=== PATIENT | male | born 1945 | race Caucasian/White ===

== ENCOUNTER 2020-09-27 10:37 | Outpatient (CLI) | payer MEDICARE, OTHER, SELFPAY ==
--- NOTE | ~2020-09-27 | XR_ITS ---
XR chest 2V DATE: 09/27/2020 11:00 INDICATION: Shortness of breath TECHNIQUE: PA and lateral views COMPARISON: 01/02/2016 AP and lateral views FINDINGS: There are bilateral lower lung infiltrates and/atelectasis involving primarily the lower lo bes. There are small bilateral pleural effusions. There is mild prominence of the fissures suggesting subpleural edema. There is mild pulmonary vascular congestion and redistribution. Heart size appears within normal limits. Diffuse osteopenia. Diffuse idiopathic skeletal hyperostosis of the thoracic spine. IMPRESSION: Congestive changes, small bilateral pleural effusions Bilateral lower lung infiltrates and/atelectasis, primarily involving the lower lobes Reviewed, dictated and finalized at location B. ANICAL MAINTENANCE
== END 2020-09-27 10:38 | disposition home or self-care (01) ==
PROVIDERS: PCP Internal Medicine; Visit Provider Internal Medicine
DX: R06.02 Shortness of breath (principal); J90 Pleural effusion, not elsewhere classified
CPT/HCPCS: 71046

== ENCOUNTER 2020-09-29 15:59 | Emergency (ER) | payer MEDICARE, OTHER, SELFPAY ==
[2020-09-29] VITALS (7 sets, daily range): BP systolic 123–154; BP diastolic 72–94; PULSE 72–105; RESP 16–21; TEMP 36.4; O2SAT 96–99
--- NOTE | ~2020-09-29 | CT_ITS ---
EXAMINATION: CTA chest PE protocol EXAM DATE: 09/29/2020 18:13 INDICATION: Shortness of breath and elevated d-dimer. TECHNIQUE: Spiral CTA of the chest (pulmonary arteries) was performed with 100 cc Omnipaque 350 intr avenous contrast injection. Images were acquired during the pulmonary arterial phase. Coronal maxi mum intensity projection 3D-reconstructions were created by the technologist on dedicated workstation . Axial, coronal and sagittal reformatted images were reviewed. The dose-length product (DLP) for t his examination was 1090.80 mGy-cm. The exposure was tailored according to patient size (auto mA ex posure control), and iterative reconstruction (ASIR) was used as additional dose reduction technique. Correlation is made to chest x-ray earlier same date. FINDINGS: Pulmonary arteries are well opacified and without intraluminal filling defects. No thora cic aortic dissection. Bibasilar subsegmental atelectasis. There is small to moderate right, and a small left pleural effusion. Tracheobronchial tree is patent. There is no mediastinal, hilar or ax illary lymphadenopathy. There is no pneumothorax. There is cardiomegaly. There is moderate coron latricia arterial calcification, arterial sclerosis. Upper abdomen is unremarkable. There is thoracic s pondylosis without osteoblastic or osteolytic lesions identified. IMPRESSION: 1. Small to moderate right, small left pleural effusions, adjacent atelectasis. 2. Cardiomegaly. 3. No pulmonary emboli. Reviewed, dictated and finalized at location A. SLAND CONSERVATIONIST IMPRESSION: 1. Small to moderate right, small left pleural effusions, adjacent atelectasis . 2. Cardiomegaly. 3. No pulmonary emboli.
--- NOTE | ~2020-09-29 | XR_ITS ---
EXAMINATION: XR chest 2V EXAM DATE: 09/29/2020 16:46 INDICATION: Shortness of breath at rest, progressing. TECHNIQUE: Frontal and lateral projections of the chest obtained and reviewed. Comparison is made to prior examination from 09/27/2020. FINDINGS: Small left pleural effusion and small amount of left basilar atelectasis or pneumonia, sim ilar appearance to prior examination. Previously seen small amount of right basilar airspace disease and small right effusion have improved or resolved. The lungs are otherwise clear. There are no pleural effusions. The cardiomediastinal silhouette is p rominent but magnified on this AP technique. There is no pneumothorax suspected. Mild thoracic sp ondylosis. IMPRESSION: Persistent left basilar small opacities and small left pleural effusion. Reviewed, dictated and finalized at location A. TAL MARKETING MANAGER IMPRESSION: Persistent left basilar small opacities and small left pleural effu torsten.
--- NOTE | 2020-09-29 16:16 | ECG_ITS ---
Measurements Intervals [place] Rate: 102 P: 54 [place]: 185 QRS: 105 QRSD: 130 T: 53 QT: 368 QTc: 481 Interpretive Statements SINUS TACHYCARDIA LEFT ATRIAL ENLARGEMENT INCOMPLETE LEFT BUNDLE BRANCH BLOCK LOW VOLTAGE- LIMB LEADS POOR R WAVE PROGRESSION, ANTERIOR LEADS BORDERLINE ST-T WAVE ABNORMALITY- INFERIOR LEADS BASELINE WANDER- I, II, V2 ABNORMAL ECG Electronically Signed On 09-29-2020 21:24:04 SOCIAL WORK CASE MANAGER by Jc Esteban D.O.
[2020-09-29 16:29] LABS: Basophils Absolute Auto 0.1 K/mm3 (0.0-0.1); Basophils Percent Auto 0.8 % (0.2-1.2); Eosinophils Absolute Auto 0.3 K/mm3 (0-0.3); Eosinophils Percent Auto 3.3 % (0-4.4); Hematocrit 45.9 % (42.0-52.0); Hemoglobin 14.9 g/dL (14.0-18.0); Immature Granulocyte Absolute 0.03 K/mm3 (0.00-0.031); Immature Granulocyte Percent A 0.3 % (0-0.5); Lymphocytes Absolute Auto 2.85 K/mm3 (0.9-3.2); Lymphocytes Percent Auto 31.6 % (18.3-44.2); Mean Corpuscular HGB Conc 32.5 g/dl (32-36); Mean Corpuscular Hemoglobin 29.3 pg (26-34); Mean Corpuscular Volume 90.2 fl (80-100); Mean Platelet Volume 10.9 fl (7.4-10.4); Monocytes Absolute Auto 0.6 K/mm3 (0.1-0.6); Monocytes Percent Auto 6.9 % (2.6-8.5); Neutrophils Absolute Auto 5.2 K/mm3 (1.3-6.7); Neutrophils Percent Auto 57.1 % (45.5-73.1); Platelet Count Result 190 k/mm3 (150-375); Red Blood Count 5.09 M/mm3 (4.6-6.20); Red Cell Distribution Width 14.4 % (11.5-14.5)
[2020-09-29 16:41] LABS: Anion Gap 11 mmol/L (8-16); Blood Urea Nitrogen 20 mg/dL (9-20); Calcium 9.9 mg/dL (8.4-10.2); Carbon Dioxide 25 mmol/L (22-30); Chloride 106 mmol/L (98-107); Estimated CRCL calculation 46 ml/min; Estimated Glomerular Filt Rate 59; Glucose 143 mg/dL (75-110); Potassium 4.4 mmol/L (3.4-5.0); Sodium 142 mmol/L (137-145)
--- NOTE | 2020-09-29 17:16 | ED.SOB ---
HPI - SOB/Dyspnea General Chief Complaint: Shortness of Breath/Dyspnea Stated Complaint: Short of breath Time Seen by Provider: 09/29/20 16:57 Source: patient Mode of arrival: ambulatory Limitations: no limitations History of Present Illness HPI Narrative: This is a 75 year old male that presents to the ER for shortness of breath x 1 week. Worse with lying flat and exertion. Denies fever, cough, chest pain or lower extremity edema. Related Data Home Medications Medication Instructions Recorded Confirmed aspirin 81 mg tablet,delayed 81 mg PO DAILY 09/27/20 09/27/20 release Allergies Allergy/AdvReac Type Severity Reaction Status Date / Time No Known Allergies Allergy Unknown Verified 09/29/20 16:25 Review of Systems Review of Systems: Narrative: CONSTITUTIONAL: Denies fever CARDIOVASCULAR: Denies chest pain, or edema. RESPIRATORY: Reports dyspnea. Denies cough All systems reviewed & are unremarkable except as noted in HPI and below PMFSH Past Medical History Medical History (Updated 09/29/20 @ 20:07 by Susie Akhtar PA-C) Benign essential hypertension Cardiomyopathy Type 2 diabetes mellitus without complication, without long-term current use of insulin Family History Family History (Updated 07/15/18 @ 00:00 by CONVUSER Mynor) Mother Family history of type 2 diabetes mellitus Social History Social History Smoking status: Never smoker Exam Narrative: Exam Narrative: GENERAL: Well-appearing, well-nourished, and in no acute distress. HEAD: Normocephalic, atraumatic. EYES: EOMI. ENT: Nares clear, no rhinorrhea or epistaxis. Mucous membranes moist. Oropharynx without tonsillar hypertrophy exudate or other lesions. Bilateral TMs pearly beverly non-bulging NECK: Supple. No adenopathy or masses. CHEST: Clear to auscultation. No respiratory distress. No wheezes rales or rhonchi HEART: Regular rate and rhythm. No murmur heard. Normal peripheral pulses. EXTREMITIES: Normal range of motion. No edema. SKIN: Warm, dry, no rash. NEURO: No focal deficits. Alert and oriented x3. PSYCH: Normal mood and affect Course Vital Signs Vital signs: Vital Signs Temperature 97.5 F L 09/29/20 16:07 Pulse Rate 91 09/29/20 16:07 Respiratory Rate 20 09/29/20 16:07 Blood Pressure 154/84 H 09/29/20 16:07 Pulse Oximetry 99 09/29/20 16:07 Temperature 97.5 F L 09/29/20 16:07 Pulse Rate 105 H 09/29/20 19:25 Respiratory Rate 16 09/29/20 19:25 Blood Pressure 142/94 H 09/29/20 19:25 Pulse Oximetry 97 09/29/20 19:25 MDM - SOB/Dyspnea Lab Data Attestation: I reviewed the patient's lab results. Result diagrams: 09/29/20 16:22 09/29/20 16:22 Labs: Lab Results 09/29/20 09/29/20 09/29/20 Range/Units 16:22 16: 16:22 WBC 9.0 (4.5-10.0) K/mm3 RBC 5.09 (4.6-6.20) M/mm3 Hgb 14.9 (14.0-18.0) g/dL Hct 45.9 (42.0-52.0) % MCV 90.2 (80-100) fl MCH 29.3 (26-34) pg MCHC 32.5 (32-36) g/dl RDW 14.4 (11.5-14.5) % Plt Count 190 (150-375) k/mm3 MPV 10.9 H (7.4-10.4) fl Immature Gran % (Auto) 0.3 (0-0.5) % Neut % (Auto) 57.1 (45.5-73.1) % Lymph % (Auto) 31.6 (18.3-44.2) % [place] % (Auto) 6.9 (2.6-8.5) % Eos % (Auto) 3.3 (0-4.4) % Baso % (Auto) 0.8 (0.2-1.2) % Lymph # (Auto) 2.85 (0.9-3.2) K/mm3 [place] # (Auto) 0.6 (0.1-0.6) K/mm3 Eos # (Auto) 0.3 (0-0.3) K/mm3 Baso # (Auto) 0.1 (0.0-0.1) K/mm3 Abs Immat Gran (auto) 0.03 (0.00-0.031) K/mm3 Absolute Neuts (auto) 5.2 (1.3-6.7) K/mm3 Absolute Nucleated RBC 0.0 (0.0-0.012) K/mm3 Nucleated RBC % 0.0 (0.0-0.2) % PT (11.1-14.7) Seconds INR APTT (22.3-36.8) SECONDS D-Dimer (<0.48) ug/mL Sodium 142 (137-145) mmol/L Potassium 4.4 (3.4-5.0) mmol/L Chloride 106 (98-107) mmol/L Carbon Dioxide 25 (22-30) mmol/L Anion Gap 11 (8-16) mmol/L BUN 20 (9-20) mg/dL Creatinin
[2020-09-29 17:22] LABS: NT Pro B Type Natriuretic Pept 1940 PG/ML (5-100)
[2020-09-29 17:27] LABS: Prothrombin Time 13.8 Seconds (11.1-14.7)
[2020-09-29 17:28] LABS: Partial Thromboplastin Time 27.7 SECONDS (22.3-36.8)
[2020-09-29 17:30] LABS: D Dimer 1.12 ug/mL (<0.48)
[2020-09-29 17:57] LABS: Troponin I 0.022 ng/mL (0.000-0.034)
[2020-09-29] MEDS: FUROSEMIDE INJ 40 MG/4 ML VIAL IV PUSH (19:18)
== END 2020-09-29 20:35 | disposition home or self-care (01) ==
PROVIDERS: Physician Assistant; Emergency Provider Emergency Medicine; PCP Internal Medicine
DX: J90 Pleural effusion, not elsewhere classified (principal); I10 Essential (primary) hypertension; E11.9 Type 2 diabetes mellitus without complications; I51.7 Cardiomegaly; Z79.82 Long term (current) use of aspirin
CPT/HCPCS: 36415; 71046; 71275; 80048; 83036; 83880; 84484; 85025; 85380; 85610; 85730; 93005; 96374; 99284; J1940; Q9967

== ENCOUNTER 2020-10-08 10:55 | Outpatient (CLI) | payer MEDICARE, OTHER, SELFPAY ==
--- NOTE | ~2020-10-08 | CT_ITS ---
EXAMINATION: CT brain wo con EXAM DATE: 10/08/2020 11:31 INDICATION: Visual problem, headache. Intracranial arterial sclerosis. TECHNIQUE: Spiral CT of the head was performed without contrast. Axial, coronal and sagittal images were reviewed. The dose-length product (DLP) for this examination was 681.00 mGy-cm. The exposure w as tailored according to patient size, and iterative reconstruction (ASIR) was used as additional dos e reduction technique. There is no prior study for comparison. FINDINGS: There is moderate-sized hypodensity within the left occipital lobe beverly and white matter co nsistent with developing infarction. There is no acute intraparenchymal hemorrhage. No evidence of i ntraparenchymal brain mass lesion. There is mild periventricular and subcortical hypodensity, nonspe cific but probably related to small vessel ischemic disease. There is mild prominence of the sulci and ventricles related to cerebral atrophy. There is intracranial carotid arteriosclerosis. There are no extra-axial collections. There is no mass effect or midline shift. The orbits are unremarkab le. Soft tissue is unremarkable. The visualized sinuses and mastoid air cells are well aerated. IMPRESSION: 1. Moderate-sized acute left occipital lobe infarction. 2. Chronic age related findings. Reviewed, dictated and finalized at location A. GER HELPDESK
--- NOTE | ~2020-10-08 | US_ITS ---
EXAMINATION: US carotid duplex BI DATE: 10/08/2020 11:29 INDICATION: Transient ischemic episode with subjective visual disturbance and headache TECHNIQUE: Grayscale, color Doppler, and pulsed Doppler images of the cervical carotid arteries were obtained. The degree of vessel stenosis is placed in one of the following categories: normal, <50%, 5 0-69%, >=70% but less than near-occlusion, near-occlusion, or total occlusion. Note that percent sten osis relative to normal distal artery lumen diameter is indirectly measured from velocity measurement s as described by Pablo, et al. Radiology 2003; 229:340-346. COMPARISON: None. FINDINGS: RIGHT: The right common carotid artery (CCA) peak systolic velocity (PSV) is 92 cm/s. The right internal car otid artery (ICA) PSV is 125 cm/s. The right ICA end-diastolic velocity (EDV) is 17 cm/s. The right I CA/CCA PSV ratio is 1.4. Grayscale and color Doppler images including secondary Doppler criteria yiel d an estimate of <50% diameter reduction from plaque in the ICA. The external carotid artery (ECA) PS V is 130 cm/s. There is antegrade flow in the right vertebral artery. LEFT: The left CCA PSV is 112 cm/s. The left ICA PSV is 126 cm/s. The left ICA EDV is 22 cm/s. The left ICA /CCA PSV ratio is 1.1. Grayscale and color Doppler images using secondary Doppler criteria yield an e stimate of <50% diameter reduction from plaque in the ICA. The ECA PSV is 113 cm/s. There is antegrad e flow in the left vertebral artery. IMPRESSION: 1. <50% stenosis in the right internal carotid artery. 2. <50% stenosis in the left internal carotid artery. 3. Tachycardia. Reviewed, dictated and finalized at location B. ION PHOTOGRAPHER
== END 2020-10-08 10:56 | disposition home or self-care (01) ==
PROVIDERS: PCP Internal Medicine; Visit Provider Internal Medicine
DX: I65.23 Occlusion and stenosis of bilateral carotid arteries (principal); R00.0 Tachycardia, unspecified
CPT/HCPCS: 70450; 93880

== ENCOUNTER 2020-10-23 10:49 | Outpatient (CLI) | payer MEDICARE, OTHER, SELFPAY ==
--- NOTE | ~2020-10-23 | XR_ITS ---
EXAMINATION: XR chest 2V DATE: 10/23/2020 11:08 INDICATION: Cardiomyopathy. TECHNIQUE: Frontal and lateral views of the chest were obtained. COMPARISON: Chest 2 views 09/29/2020, chest CT 09/29/2020 FINDINGS: There is no pneumonia, pleural effusion, or pneumothorax. The heart size is normal. Calcifi ed mediastinal and left hilar lymph nodes are consistent with old granulomatous disease. IMPRESSION: 1. No acute cardiopulmonary disease. Reviewed, dictated and finalized at location A.
== END 2020-10-23 10:50 | disposition home or self-care (01) ==
PROVIDERS: PCP Internal Medicine; Visit Provider Internal Medicine
DX: I42.9 Cardiomyopathy, unspecified (principal)
CPT/HCPCS: 71046

== ENCOUNTER 2020-12-10 09:59 | Emergency (ER) | payer MEDICARE, OTHER, SELFPAY ==
--- NOTE | ~2020-12-10 | XR_ITS ---
EXAMINATION: XR chest 2V EXAM DATE: 12/10/2020 10:51 INDICATION: Shortness of air, cough. TECHNIQUE: Frontal and lateral projections of the chest obtained and reviewed. Comparison is made to prior examination from 10/23/2020. FINDINGS: Small amount of nonspecific right lower lobe airspace disease which is new compared to pre vious examination, could be atelectasis or possibly developing infection. The lungs are otherwise florinda ar. There are no pleural effusions. The cardiomediastinal silhouette is within normal limits. Ther e is no pneumothorax suspected. The bones and soft tissues are unremarkable. IMPRESSION: Small amount of nonspecific right basilar opacity probably atelectasis or possibly infect ion. Reviewed, dictated and finalized at location B. IMPRESSION: Small amount of nonspecific right basilar opacity probably atelecta sis or possibly infection.
[2020-12-10 10:00] VITALS: BP 120/71; PULSE 89; RESP 16; TEMP 37.7; O2SAT 96
--- NOTE | 2020-12-10 10:24 | ECG_ITS ---
Measurements Intervals [place] Rate: 82 P: 46 FL: 205 QRS: -83 QRSD: 95 T: 68 QT: 359 QTc: 420 Interpretive Statements SINUS RHYTHM BORDERLINE AV CONDUCTION DELAY LOW QRS VOLTAGE IN LIMB LEADS POOR R WAVE PROGRESSION, ANTERIOR LEADS BORDERLINE T WAVE ABNORMALITY- HIGH LATERAL LEADS BASELINE ARTIFACT- I, AVR, AVL BORDERLINE ECG Electronically Signed On 12-10-2020 11:08:33 CDT by Jc Esteban D.O.
[2020-12-10 10:43] LABS: Basophils Percent Auto 0.1 % (0.2-1.2); Eosinophils Absolute Auto 0.1 K/mm3 (0-0.3); Eosinophils Percent Auto 0.6 % (0-4.4); Hematocrit 43.7 % (42.0-52.0); Hemoglobin 14.2 g/dL (14.0-18.0); Immature Granulocyte Absolute 0.04 K/mm3 (0.00-0.031); Immature Granulocyte Percent A 0.4 % (0-0.5); Lymphocytes Absolute Auto 1.42 K/mm3 (0.9-3.2); Lymphocytes Percent Auto 14.1 % (18.3-44.2); Mean Corpuscular HGB Conc 32.5 g/dl (32-36); Mean Corpuscular Hemoglobin 29.2 pg (26-34); Mean Corpuscular Volume 89.9 fl (80-100); Mean Platelet Volume 10.1 fl (7.4-10.4); Monocytes Absolute Auto 0.4 K/mm3 (0.1-0.6); Monocytes Percent Auto 4.2 % (2.6-8.5); Neutrophils Absolute Auto 8.2 K/mm3 (1.3-6.7); Neutrophils Percent Auto 80.6 % (45.5-73.1); Platelet Count Result 180 k/mm3 (150-375); Red Blood Count 4.86 M/mm3 (4.6-6.20); Red Cell Distribution Width 14.9 % (11.5-14.5); White Blood Count 10.1 K/mm3 (4.5-10.0)
[2020-12-10 10:57] LABS: Anion Gap 12 mmol/L (8-16); Blood Urea Nitrogen 26 mg/dL (9-20); Calcium 9.5 mg/dL (8.4-10.2); Carbon Dioxide 22 mmol/L (22-30); Chloride 104 mmol/L (98-107); Estimated CRCL calculation 41 ml/min; Estimated Glomerular Filt Rate 35; Glucose 127 mg/dL (75-110); Magnesium 2.2 mg/dL (1.6-2.3); Potassium 4.7 mmol/L (3.4-5.0); Sodium 138 mmol/L (137-145)
[2020-12-10 11:00] VITALS: BP 116/64; PULSE 79; RESP 20; O2SAT 96
[2020-12-10 11:06] LABS: NT Pro B Type Natriuretic Pept 1380 pg/mL (5-100)
[2020-12-10] MEDS: SODIUM CHLORIDE 0.9% IV 1,000 ML 999 ML IV CONT (11:11)
--- NOTE | 2020-12-10 12:22 | ED.GENADULT ---
HPI - General Adult General Chief complaint: Weakness Stated complaint: cough/decreased appetite/weakness/dizzy Time Seen by Provider: 12/10/20 10:04 History of Present Illness HPI narrative: Patient is a 75-year-old male who presents ER with multiple issues. Patient reports over the last couple weeks he has had decreased appetite and is only eating small bites of toast. He has developed persistent cough without phlegm. Recently had pneumonia. He is up-to-date on his Covid vaccination. Currently has some brief dizziness earlier. After discussion with his family member they opted to come here to be evaluated. Patient does have history of heart failure. He denies orthopnea. He does report he is been having trouble sleeping. Related Data Home Medications Medication Instructions Recorded Confirmed aspirin 81 mg tablet,delayed 81 mg PO DAILY 09/27/20 11/13/20 release ramipril 2.5 mg tablet 2.5 mg PO DAILY 10/09/20 11/13/20 Allergies Allergy/AdvReac Type Severity Reaction Status Date / Time No Known Allergies Allergy Unknown Verified 11/13/20 09:54 Review of Systems Review of Systems: All systems reviewed & are unremarkable except as noted in HPI and below Constitutional: Constitutional: Denies chills, Reports fatigue and Denies fever(s) ENT: Denies nasal congestion and Denies sore throat Cardiovascular: Cardiovascular: Denies chest pain and Denies radiating jaw, neck or arm pain Respiratory: Respiratory: Reports cough, Denies dyspnea and Denies wheezing Gastrointestinal: Gastrointestinal: Denies nausea and Denies vomiting Neurologic: Reports dizziness, Denies headache(s), Denies focal weakness and Denies numbness PMFSH Past Medical History Medical History (Updated 12/10/20 @ 12:33 by Rodrigo Shah MD) Benign essential hypertension Cardiomyopathy 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 HEAD: Normocephalic, atraumatic. CHEST: Clear to auscultation. No respiratory distress. HEART: Regular rate and rhythm. Normal peripheral pulses. ABDOMEN: Soft, nontender, nondistended. EXTREMITIES: Normal range of motion. No edema. SKIN: Warm, dry, no rash. NEURO: Alert and oriented x3. PSYCH: Normal mood and affect. Course Course Emergency Course: Resting comfortably. Hydrated. Informed of lab results and treatment plan. Verbalized understanding. Discharge home. Vital Signs Vital signs: Vital Signs Temperature 100 F H 12/10/20 10:00 Pulse Rate 89 12/10/20 10:00 Respiratory Rate 16 12/10/20 10:00 Blood Pressure 120/71 12/10/20 10:00 Pulse Oximetry 96 12/10/20 10:00 Temperature 100 F H 12/10/20 10:00 Pulse Rate 89 12/10/20 10:00 Respiratory Rate 16 12/10/20 10:00 Blood Pressure 120/71 12/10/20 10:00 Pulse Oximetry 96 12/10/20 10:00 Medical Decision Making Vital Signs Vital Signs: Vital Signs Temperature 100 F H 12/10/20 10:00 Pulse Rate 89 12/10/20 10:00 Respiratory Rate 16 12/10/20 10:00 Blood Pressure 120/71 12/10/20 10:00 Pulse Oximetry 96 12/10/20 10:00 Temperature 100 F H 12/10/20 10:00 Pulse Rate 89 12/10/20 10:00 Respiratory Rate 16 12/10/20 10:00 Blood Pressure 120/71 12/10/20 10:00 Pulse Oximetry 96 12/10/20 10:00 Lab Data Result diagrams: 12/10/20 10:34 12/10/20 10:34
[2020-12-10 12:41] VITALS: BP 115/67; PULSE 82; RESP 24; O2SAT 98
== END 2020-12-10 12:42 | disposition home or self-care (01) ==
PROVIDERS: Emergency Provider Emergency Medicine; PCP Internal Medicine
DX: J18.9 Pneumonia, unspecified organism (principal); E86.0 Dehydration; E11.9 Type 2 diabetes mellitus without complications; Z79.4 Long term (current) use of insulin; I11.0 Hypertensive heart disease with heart failure; I50.9 Heart failure, unspecified
CPT/HCPCS: 36415; 71046; 80048; 83735; 83880; 85025; 93005; 96360; 99283; J7030

== ENCOUNTER 2020-12-20 09:49 | Outpatient (CLI) | payer MEDICARE, OTHER, SELFPAY ==
--- NOTE | ~2020-12-20 | XR_ITS ---
XR chest 2V DATE: 12/20/2020 10:08 INDICATION: Pneumonia follow-up TECHNIQUE: PA and lateral views COMPARISON: 12/2020 PA and lateral chest FINDINGS: No pulmonary infiltrate or consolidation, pleural effusion or pulmonary vascular congestion or pneumothorax. Heart size is upper limits of normal. Is mild aortic unfolding. Degenerative spurring of the thoracic spine. IMPRESSION: No active pulmonary disease Degenerative spurring of the thoracic spine Reviewed, dictated and finalized at location A.
== END 2020-12-20 09:50 | disposition home or self-care (01) ==
PROVIDERS: PCP Internal Medicine; Visit Provider Internal Medicine
DX: J18.9 Pneumonia, unspecified organism (principal)
CPT/HCPCS: 71046

== ENCOUNTER 2022-06-23 15:06 | Outpatient (CLI) | payer MEDICARE, OTHER, SELFPAY ==
--- NOTE | ~2022-06-23 | XR_ITS ---
XR hip LT min 2V DATE: 06/23/2022 15:36 INDICATION: Posterior hip pain for 2 weeks. No known injury. TECHNIQUE: AP and lateral views COMPARISON: 05/20/2018 CT abdomen pelvis FINDINGS: There is moderate left hip osteoarthritis. No fracture, dislocation, avascular necrosis or bone destruction is detected. Normal alignment at the pubic symphysis and left sacroiliac joint. Extensive femoral artery calcification. IMPRESSION: Moderate left hip osteoarthritis Reviewed, dictated and finalized at location A. ERCIAL HVAC SERVICE TECHNICIAN
== END 2022-06-23 15:07 | disposition home or self-care (01) ==
LOC: ANHIMG 15:10
PROVIDERS: PCP Internal Medicine; Visit Provider Internal Medicine
DX: M16.12 Unilateral primary osteoarthritis, left hip (principal)
CPT/HCPCS: 73502

== ENCOUNTER 2022-07-17 08:45 | Outpatient (CLI) | payer MEDICARE, OTHER, SELFPAY ==
--- NOTE | ~2022-07-17 | US_ITS ---
US abdomen limited DATE: 07/17/2022 09:22 INDICATION: Abnormal liver function tests. Cirrhosis. TECHNIQUE: Real-time imaging of right upper quadrant, Doppler analysis COMPARISON: 05/20/2018 CT abdomen pelvis FINDINGS: There is surface nodularity of liver suggesting cirrhosis. No hepatic space-occupying mass lesion is detected. Normal hepatopedal portal venous flow direction. No gallstones or gallbladder wall thickening. Negative sonographic Ware's sign. The common bile den t measures 4.8 mm, normal. The pancreas appears normal. IMPRESSION: Surface nodularity of the liver suggesting cirrhosis Reviewed, dictated and finalized at Location A. Reviewed, dictated and finalized at location B. CAMP UNIT LEADER
--- NOTE | ~2022-07-17 | XR_ITS ---
XR chest 2V DATE: 07/17/2022 09:34 INDICATION: Abnormal weight loss. History of prostate cancer. TECHNIQUE: PA and lateral views COMPARISON: 12/20/2020 2 view chest FINDINGS: Interval dual-lead left-sided transvenous pacemaker device is noted, leads overlying right atrium and right ventricle, new since 12/20/2020. Normal heart size. Minimal aortic unfolding. No ngoc r or mediastinal enlargement. No pulmonary infiltrate or consolidation, pleural effusion or pulmonary vascular congestion or pneumo thorax. Degenerative spurring of the thoracic spine. IMPRESSION: Left dual-lead pacemaker device No active cardiopulmonary disease Reviewed, dictated and finalized at location B. TRICAL WORKER
== END 2022-07-17 08:46 | disposition home or self-care (01) ==
LOC: ANHIMG 08:47
PROVIDERS: PCP Internal Medicine; Visit Provider Internal Medicine
DX: R63.4 Abnormal weight loss (principal); R79.89 Other specified abnormal findings of blood chemistry; Z95.0 Presence of cardiac pacemaker
CPT/HCPCS: 71046; 76705

== ENCOUNTER 2022-09-01 10:34 | Outpatient (CLI) | payer MEDICARE, OTHER, SELFPAY ==
--- NOTE | ~2022-09-01 | XR_ITS ---
Lumbosacral Spine: AP and lateral views Clinical History: Pain Findings: There is mild dextro scoliosis. No fracture. 3 mm retrolisthesis of L2 over L3 noted. 5 mm anterolisthesis of L4 over L5 present. There are mild to moderate facet joint degenerative changes th roughout the lumbar spine, worst at L4-L5 and L5-S1. The sacroiliac joints are normally outlined. Impression: 3 mm retrolisthesis of L2 over L3. 5 mm anterolisthesis of L4 over L5. Facet joint degenerative changes, as detailed above. Reviewed, dictated and finalized at location M. ASE SPECIALIST Impression: 3 mm retrolisthesis of L2 over L3. 5 mm anterolisthesis of L4 over L5. Facet joint degenerative changes, as detailed above.
== END 2022-09-01 10:35 | disposition home or self-care (01) ==
PROVIDERS: PCP Internal Medicine; Visit Provider Nurse Practitioner
DX: M43.16 Spondylolisthesis, lumbar region (principal)
CPT/HCPCS: 72100

== ENCOUNTER 2022-09-25 15:10 | Outpatient (CLI) | payer MEDICARE, OTHER, SELFPAY ==
--- NOTE | ~2022-09-25 | CT_ITS ---
Clinical Indication: Weight loss CT Scan of the Chest, Abdomen, and Pelvis without Contrast: Technique: Contiguous sections were acquired throughout the chest, abdomen, and pelvis without IV or oral contrast demonstration. Dose reduction technique was used on this scan by utilizing automated ex posure control and iterative reconstruction technique. The dose-length product (DLP) was 954.49 mGy-c m. COMPARISON: 09/29/2020 Findings: There is no evidence of any significant mediastinal, hilar or axillary lymphadenopathy. Calcified med iastinal and left hilar lymph nodes are present. Coronary artery calcifications are present, along wi th pacemaker device. No aortic aneurysm. There is no evidence of pleural or pericardial effusion. The lungs are clear. No pulmonary nodules or infiltrates are noted. The liver, spleen, pancreas, gallbladder, and adrenal glands are within normal limits. Small bilatera l nonobstructing renal stones are present. Right renal cysts noted. No lymphadenopathy. No bowel obstruction or bowel wall thickening. There is no evidence to suggest acute appendicitis. No abdominal aortic aneurysm. 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 Left internal iliac artery focally measures up to 1.9 cm in diameter. Patient is status post cystectomy with presumed ileal conduit in place. No pelvic mass evident. Impression: No evidence for active malignancy or metastatic disease. Status post cystectomy with ileal conduit. 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 Focal dilatation of the left internal iliac arter y to 1.9 cm. Small bilateral nonobstructing renal stones. Reviewed, dictated and finalized at location . CE DISPATCHER Impression: No evidence for active malignancy or metastatic disease. Status post cystectomy with ileal conduit. 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 Focal dilatation of the lef t internal iliac artery to 1.9 cm. Small bilateral nonobstructing renal stones.
== END 2022-09-25 15:11 | disposition home or self-care (01) ==
PROVIDERS: PCP Internal Medicine; Visit Provider Nurse Practitioner
DX: R63.4 Abnormal weight loss (principal); I72.3 Aneurysm of iliac artery
CPT/HCPCS: 71250; 74176

== ENCOUNTER 2022-11-26 17:19 | Inpatient (IN) | payer MEDICARE, OTHER, SELFPAY ==
[2022-11-26] VITALS (18 sets, daily range): BP systolic 96–126; BP diastolic 55–84; PULSE 89–113; RESP 12–26; TEMP 36.7–38.9; O2SAT 78–100; BMI 26.0
--- NOTE | ~2022-11-26 | XR_ITS ---
EXAMINATION: BONE SURVEY/METASTATIC SURVEY DATE: 11/27/2022 INDICATION: Lytic lesion at L5. TECHNIQUE: A skeletal survey was performed including AP views of the chest, abdomen and pelvis; AP an d lateral/lateral swimmers views of the cervical, thoracic and lumbar spine; lateral view of the skul l, and AP and lateral views of the appendicular skeleton excluding the hands and feet. COMPARISON: CT studies dated 11/26/2022 and 09/25/2022 FINDINGS: The lytic lesion along the superior endplate of L5 is difficult to appreciate on the plain radiograph s. No other suspicious lytic bone lesions identified. There are bridging osteophytes at multiple leve ls in the spine along with prominent enthesophytes at multiple sites of ligamentous or tendinous deon chment in the appendicular skeleton consistent with diffuse idiopathic skeletal hyperostosis (DISH). Moderate degenerative skeletal changes throughout the spine and involving multiple joints in the appe ndicular skeleton. Heterotopic ossicle the soft tissues at the proximal left forearm. There are scatt ered vascular calcifications at the extremities. Peripheral IV at the right antecubital fossa. Lungs are clear with no pleural airspace opacities, pulmonary edema, pleural effusion or pneumothorax . Heart size is normal. Dual lead pacemaker/AICD seen with leads projecting over the expected locatio ns of the right atrium and right ventricle. Calcified mediastinal and left hilar lymph nodes consiste nt with old granulomatous disease. Embolization coils projecting over a large rim calcified right int ernal iliac artery aneurysm which appears thrombosed on the prior postcontrast CT. IMPRESSION: 1. No suspicious lytic or blastic bone lesions to suggest metastatic disease. The lytic lesion at the involving the superior endplate of L5 is unable to be clearly visualized. Although differential woul d include metastatic disease or myeloma, the significant progression in 3 months suggests this could also be related to either infection or a new Schmorl's node. Consider further evaluation with pre and postcontrast lumbar spine MR . Reviewed, dictated and finalized at location A. IMPRESSION: 1. No suspicious lytic or blastic bone lesions to suggest metastatic disease. T he lytic lesion at the involving the superior endplate of L5 is unable to be cl early visualized. Although differential would include metastatic disease or mye robin, the significant progression in 3 months suggests this could also be relat ed to either infection or a new Schmorl's node. Consider further evaluation wit h pre and postcontrast lumbar spine MR .
--- NOTE | ~2022-11-26 | XR_ITS ---
Portable chest x-ray Comparison: 07/17/2022 Clinical History: Cough Findings: Possible minimal central pulmonary venous congestive change. No other consolidation or ple ural effusion seen. Cardiomediastinal silhouette is stable, with pacemaker device. Bones and soft ti ssues are unremarkable. Impression: Minimal central pulmonary venous congestive change. Pacemaker device. Reviewed, dictated and finalized at [facility]. Impression: Minimal central pulmonary venous congestive change. Pacemaker device.
--- NOTE | ~2022-11-26 | US_ITS ---
EXAMINATION: US thyroid DATE: 11/30/2022 11:03 INDICATION: Thyroid nodule. TECHNIQUE: Multiple ultrasound images of the thyroid were obtained. COMPARISON: CT 11/29/2022 FINDINGS: The right thyroid lobe measures 4.1 x 1.9 x 2.6 cm. The left thyroid lobe measures 2.3 x 1.2 x 1.4 c m. In the right thyroid lobe, there is a 2.9 cm solid, isoechoic, taller than wide nodule with ill-d efined margin without echogenic foci (TI-RADS TR4). IMPRESSION: 1. Right thyroid nodule. Consider ultrasound-guided fine-needle aspiration. Reviewed, dictated and finalized at location A.
--- NOTE | ~2022-11-26 | CT_ITS ---
EXAMINATION: CT abdomen pelvis w con DATE: 11/26/2022 19:14 INDICATION: Sepsis. History of UTI. TECHNIQUE: Computed tomography (CT) of the abdomen and pelvis was performed with 100 cc Omnipaque 350 intravenous contrast. The dose-length product was 1328.68 mGy-cm. Automated exposure control and ite rative reconstruction technique were employed. COMPARISON: CT dated 09/25/2022. FINDINGS: There are surgical changes consistent with cystectomy with ileal conduit in the right mid a bdomen. There is atherosclerosis. There is a thrombosed 4.1 cm right internal iliac artery aneurysm. There is aneurysmal dilation of the left internal iliac artery measuring 1.9 cm, also at least partia lly thrombosed. Dependent atelectasis. No significant pleural or pericardial effusion. There is a pacemaker device. T he liver, spleen, pancreas, adrenal glands are unremarkable. There are nonobstructing bilateral renal stones. There is a right renal cyst measuring 4.7 cm. There is saccular aneurysm of the infrarenal a bdominal aorta measuring measuring 3.1 cm. Gallbladder is present. Nonobstructive bowel pattern. [place] diverticulosis without evidence for diverticulitis. No free air or free fluid. Severe thoracic an d lumbar spondylosis. There is a new lytic lesion involving the superior endplate of L5. IMPRESSION: 1. No acute abdominal abnormality. 2: Infrarenal abdominal aortic aneurysm measuring 3.1 cm. 3: Bilateral thrombosed internal iliac artery aneurysms. 4: Nonobstructing bilateral nephrolithiasis. 5: New lytic lesion of L5. Cannot exclude metastatic disease or myeloma. Reviewed, dictated and finalized at location A.
--- NOTE | ~2022-11-26 | US_ITS ---
US renal BI DATE: 11/27/2022 08:57 INDICATION: Acute renal insufficiency. History of cystectomy for bladder cancer TECHNIQUE: Real-time and color flow imaging of the kidneys COMPARISON: 12/[address] abdomen pelvis FINDINGS: The right kidney measures 10.5 cm length. Lower pole right renal approximately 4.5 cm cyst. Mild left hydronephrosis. Left kidney measures approximately 10.8 cm length. Small lower pole left renal calculus and approxima tely 4-5 mm dimension. No left hydronephrosis. IMPRESSION: 4.5 cm lower pole right renal cyst Mild left hydronephrosis Small calculus, lower pole Reviewed, dictated and finalized at [facility]. Reviewed, dictated and finalized at location B.
--- NOTE | ~2022-11-26 | CT_ITS ---
EXAMINATION: CT chest abdomen pelvis w con DATE: 11/29/2022 14:01 INDICATION: persistent fevers . TECHNIQUE: Computed tomography (CT) of the chest, abdomen, and pelvis was performed with 100 mL Omnip aque-350 intravenous contrast. Automated exposure control and iterative reconstruction technique were employed. The dose-length product was 2006.37 mGy-cm. COMPARISON: CT abdomen pelvis 11/26/2022; CT chest abdomen pelvis 09/25/2022 FINDINGS: CHEST: Thoracic aorta: No significant dilation or calcification. Focal intramural thrombus at the aortic arc h. Mild arch calcification Lung parenchyma and airways: Mild dependent groundglass and interlobular septal opacities. Subsegment al right basilar airspace disease. Thoracic inlet, axillae and chest wall: Heterogeneous 2.7 cm right thyroid nodule. Left chest pacer. Mediastinum: No mass or lymphadenopathy. Calcified mediastinal and left hilar nodes. Heart and pericardium: Normal heart size. No pericardial effusion. Coronary artery calcifications: Heavy, with possible stents. Pleura: No effusion or mass. Thoracic bones: No acute osseous finding in the chest. ABDOMEN/PELVIS: Liver: Steatosis. Biliary/Gallbladder: Gallbladder is normal. No bile duct dilation. Pancreas: No mass or duct dilation. Spleen: Normal. Adrenals:No mass. Kidneys: Simple right lower pole cyst. Nonobstructing bilateral renal stones. No hydronephrosis. GI tract: Right lower quadrant ileal conduit No small or large bowel dilation. Appendix not visualize d. Mesentery/Peritoneum: No ascites, mass, or free air. Retroperitoneum: No mass 1.0 x 1.5 x 2.0 cm focal outpouching off the right anterolateral aspect of t he infrarenal abdominal aorta just proximal to the takeoff of the MAR[place], slightly increased in size sin ce the September exam. There is surrounding soft tissue thickening/stranding measuring up to 7 mm, wit h posterior sparing. Stable thrombosed bilateral internal iliac artery aneurysms, with distal flow. Pelvis: Absent urinary bladder. Soft Tissues: Soft tissues and body wall unremarkable. Abdominopelvic bones: No acute osseous finding in the abdomen/pelvis. Demonstration of the lytic les ion in the superior endplate of L5, stable since the prior exam but significantly larger than in the September examination. IMPRESSION: 1. 2.0 cm saccular infrarenal abdominal aortic aneurysm, slightly increased in size since September wi th adjacent soft tissue thickening, possibly representing an inflammatory/mycotic aneurysm. Consider vascular consultation. 2. Lytic lesion in the superior plate of L5, may represent metastatic disease or myeloma. CT appearan ce is atypical for osteoarthritis/discitis, noting that indolent infection is not excluded. 3. 2.7 cm right thyroid nodule, consider thyroid ultrasound for further characterization. 4. Mild interstitial edema with right basilar atelectasis. Reviewed, dictated and finalized at location K. IMPRESSION: 1. 2.0 cm saccular infrarenal abdominal aortic aneurysm, slightly increased in size since September with adjacent soft tissue thickening, possibly representing an inflammatory/mycotic aneurysm. Consider vascular consultation. 2. Lytic lesion in the superior plate of L5, may represent metastatic disease o r myeloma. CT appearance is atypical for osteoarthritis/discitis, noting that i ndolent infection is not excluded. 3. 2.7 cm right thyroid nodule, consider thyroid ultrasound for further charact erization. 4. Mild interstitial edema with right basilar atelectasis.
--- NOTE | ~2022-11-26 | CT_ITS ---
EXAMINATION: CT brain wo con DATE: 11/26/2022 19:10 INDICATION: Altered mental status TECHNIQUE: Computed tomography (CT) of the head was performed without intravenous contrast. The dose- length product was 681.00 mGy-cm. Automated exposure control and iterative reconstruction technique were employed. COMPARISON: CT dated 10/08/2020 FINDINGS: Generalized atrophy. There are scattered mild periventricular and subcortical white matter changes, most likely related to small vessel ischemic disease (microangiopathy). There is a chronic l eft lacunar infarction. No ventriculomegaly or midline shift. Basilar cisterns are patent. Paranasal sinuses and mastoids are pneumatized. No depressed skull fractures. IMPRESSION: 1. No acute intracranial abnormality. 2: Chronic left occipital lobe infarction. 3: Chronic age-related findings. Reviewed, dictated and finalized at location A.
--- NOTE | 2022-11-26 17:26 | ECG_ITS ---
Measurements Intervals [place] Rate: 108 P: AL: 0 QRS: -80 QRSD: 116 T: 81 QT: 334 QTc: 449 Interpretive Statements PROBABLE SINUS TACHYCARDIA LOW QRS VOLTAGE [QRS DEFLECTION < 0.5/1.0 mV IN LIMB/CHEST LEADS] LEFT ANTERIOR FASCICULAR BLOCK [QRS AXIS <= -45, QR IN I, RS IN II] POSSIBLE ANTERIOR MYOCARDIAL INFARCTION , PROBABLY OLD [30 ms Q WAVE IN V3/V4, OR R < 0.2 mV IN V4] ABNORMAL ECG Electronically Signed On 11-30-2022 11:55:02 CDT by Kenji Stockton M.D.
--- NOTE | 2022-11-26 17:39 | ED.AMS ---
HPI - Altered Mental Status General Chief Complaint: Altered Mental Status Stated Complaint: AMS/ SEPSIS Time Seen by Provider: 11/26/22 17:22 History of Present Illness HPI narrative: 77-year-old male with history of bladder and prostate cancer with a urostomy presenting to the ED for evaluation of altered mental status. Family states that the patient does have frequent urinary tract infections. Family states that the patient has had increased altered mental status over the last few days. Patient is supposed to be on prophylactic antibiotics to help prevent urinary tract infections but has not been taking this. Related Data Home Medications Medication Instructions Recorded Confirmed aspirin 81 mg tablet,delayed 81 mg PO DAILY 09/27/20 11/04/22 release ramipril 2.5 mg tablet 2.5 mg PO DAILY 10/09/20 11/04/22 empagliflozin 10 mg tablet 10 mg PO DAILY 04/13/22 11/04/22 (Jardiance) doxylamine succinate 25 mg tablet 25 mg PO QHS PRN 10/05/22 11/04/22 sulfamethoxazole 800 1 tablet PO Q12H 10/05/22 11/04/22 mg-trimethoprim 160 mg tablet vitamin A-vitamin C-vit E-min 1 tablet PO DAILY 10/05/22 11/04/22 tablet Allergies Allergy/AdvReac Type Severity Reaction Status Date / Time No Known Allergies Allergy Unknown Verified 11/26/22 18:05 Review of Systems Review of Systems: All systems reviewed & are unremarkable except as noted in HPI and below PMFSH Past Medical History Medical History (Updated 11/26/22 @ 20:31 by Doc Lopez MD) Altered taste Benign essential hypertension Cardiomyopathy COVID-19 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 History of aortic aneurysm Liver cirrhosis Malignant neoplasm of urinary bladder Type 2 diabetes mellitus without complication, without long-term current use of insulin Weight loss Surgical History Surgical History History of implantable cardioverter-defibrillator (ICD) insertion History of percutaneous coronary intervention Family History Family History Mother Family history of type 2 diabetes mellitus Social History Social History Smoking status: Never smoker Second hand tobacco smoke exposure: Yes Alcohol intake: never Substance use: never Substance use type: does not use Lack of Transportation: No Lack of Food: Never True Current Housing: I Have Housing Concerned About Future Housing: No Difficulty Paying Gas/Electric Bills: No Difficulty Paying for Meds: No Currently Unemployed: No Education: High School Diploma/GED Difficulty w/ Childcare or Family Care: No Exam Narrative: APPEARANCE:no pain, no distress, well-nourished. HEAD: normocephalic, atraumatic. EYES: PERRLA/EOMI, conjunctivae clear. NOSE: Normal no drainage NECK: Supple. No adenopathy, no masses. RESPIRATORY: Airway patent, respirations nonlabored. Clear to auscultation bilaterally, no rales, rhonchi, wheezing. CARDIOVASCULAR: Regular rate and rhythm without murmurs rubs or gallops. ABDOMINAL: Soft, nontender, nondistended, normal bowel sounds. Well-appearing urostomy MUSCULOSKELETAL: Moves all extremities. Strength/ROM intact, No edema, No calf tenderness. NEURO: Alert. Cranial nerves II through XII intact. Grossly intact SKIN: Warm, dry. Normal Color Course Course Emergency Course: 77-year-old male presented to the ED for evaluation of altered mental status. Patient does have history of frequent urinary tract infections. Upon arrival to the ED patient was tachycardic and had temperature of 102. Patient was treated with IV Tylenol blood cultures were pending. Patient was treated with 30 mg/kg of IV fluids. Patient's labs do not show an elevated leukocytosis. Patient was mildly hyponatremic with a sodium 129. Patient's creatinine was elevated at 1.9. Patient also had an elevated lactic ac
[2022-11-26 18:20] LABS: Appearance Urine Turbid (Clear); Bacteria Urine Rare /hpf; Bilirubin Urine Negative (Negative); Blood Urine Negative (Negative); Budding Yeast Urine Present /hpf; Color Urine Yellow (Yellow); Glucose Urine UA 1+ mg/dL (Negative); Ketones Urine Negative (Negative); Leukocyte Esterase Ur Trace LEU/UL (Negative); Need Manual Microscopic Reviewed; Nitrate Urine Negative (Negative); Protein Urine 1+ mg/dL (Negative); Specific Grav Ur 1.014 (1.001-1.035); Squamous Epithelial Cell Urine None seen /hpf (Few); Urobilinogen Urine 0.2 mg/dL (<2.0); WBC Urine 21-50 /hpf
[2022-11-26 18:21] LABS: Add Urine Microscopic? YES
[2022-11-26 18:36] LABS: Basophils Percent Auto 0.7 % (0.2-1.2); Eosinophils Percent Auto 0.2 % (0-4.4); Immature Granulocyte Absolute 0.03 K/mm3 (0.00-0.031); Immature Granulocyte Percent A 0.5 % (0-0.5); Lymphocytes Absolute Auto 1.07 K/mm3 (0.9-3.2); Lymphocytes Percent Auto 17.8 % (18.3-44.2); Mean Corpuscular HGB Conc 32.5 g/dl (32-36); Mean Corpuscular Hemoglobin 27.4 pg (26-34); Mean Corpuscular Volume 84.4 fl (80-100); Mean Platelet Volume 8.7 fl (7.4-10.4); Monocytes Absolute Auto 0.5 K/mm3 (0.1-0.6); Monocytes Percent Auto 8.8 % (2.6-8.5); Neutrophils Absolute Auto 4.3 K/mm3 (1.3-6.7); Platelet Count Result 226 k/mm3 (150-375); Red Blood Count 4.74 M/mm3 (4.6-6.20); Red Cell Distribution Width 16.8 % (11.5-14.5)
[2022-11-26 18:48] LABS: INR 1.2; Prothrombin Time 14.6 Seconds (11.1-14.7)
[2022-11-26 18:49] LABS: Partial Thromboplastin Time 31.5 SECONDS (22.3-36.8)
[2022-11-26 18:53] LABS: Alanine Aminotransferase 45 U/L (6-50); Albumin Level 4.2 g/dL (3.5-5.1); Alkaline Phosphatase 265 U/L (38-126); Anion Gap 8 mmol/L (8-16); Aspartate Amino Transferase 69 U/L (17-59); Bilirubin,Total 1.2 mg/dL (0.2-1.3); Blood Urea Nitrogen 29 mg/dL (9-20); CRP 1.8 mg/dL (<1.0); Carbon Dioxide 25 mmol/L (22-30); Chloride 96 mmol/L (98-107); Estimated CRCL calculation 35 ml/min; Estimated Glomerular Filt Rate 35; Glucose 112 mg/dL (65-110); Lactic Acid Reflex 2.2 mmol/L (0.7-2.0); Potassium 4.7 mmol/L (3.4-5.0); Sodium 129 mmol/L (137-145)
[2022-11-26 19:20] LABS: Influenza A QL RT-PCR Negative (Negative); Influenza B QL RT-PCR Negative (Negative); RSV RNA, RT-PCR Negative (Negative); SARS-CoV-2 RNA PCR Negative (Negative)
[2022-11-26] MEDS: IBUPROFEN 600 MG TABLET PO (21:04)
[2022-11-26] MEDS: SODIUM CHLORIDE 0.9% IV 1,000 ML 100 ML IV CONT (21:16)
[2022-11-26 21:33] LABS: Reflex Lactic Acid Yes or No Add Lactic
[2022-11-26 22:19] LABS: Lactic Acid 1.7 mmol/L (0.7-2.0)
--- NOTE | 2022-11-26 22:29 | PM.IMHP ---
H&P: HPI History of Present Illness Date/Time: 11/26/22 22:29 Chief Complaint: Confusion Narrative: 77-year-old male with a past medical history of cardiomyopathy with EF of 35-45%, biventricular pacemaker, prostate cancer and bladder cancer with urostomy in place who presented to the ER from home via private vehicle due to confusion. The patient is reportedly on prophylactic antibiotics for UTI but has not been receiving that at home for some reason. When the patient arrived to the ER his temperature was a 102?. Source of information comes from ER records at and past medical records. The patient is alert oriented only to self in the fact that he is in the hospital. He does not know what town we are in or what hospital we are at. He thinks the month is October in that the years 2002. He thinks the president is [place]. The patient is currently afebrile. He denies any headache or vision changes. He denies any nausea or vomiting. Currently he has a fair amount of urine out of his ostomy after receiving 2.6 L in fluid bolus in the ER (30 mL/kilos). He he also received IV Tylenol in the ER. He denies any abdominal pain. He reports that he has been having chronic back pain for about a year. He states he is post to go see a specialist soon about this. The patient had no reproducible tenderness to palpation of the spine. The patient reports the pain is across his lower back and is worse when he gets up to walk. He reports that he occasionally has a cough productive of a small amount of phlegm which usually swallows. He has not noticed increased cough. He denies any shortness of breath. He has not had any lower extremity swelling. He denies any changes in his bowels. Review of Systems Review of Systems: 12 systems were reviewed with pertinent positives and negatives per HPI. Except as documented in the HPI, all other systems were reviewed and are negative. However the reliability of the review of systems is questionable given the patient is only oriented to person and the fact that he is in the hospital. [facility] Past Medical History Medical History Altered taste Benign essential hypertension Cardiomyopathy Echocardiogram 10/2020: EF 37-42%, biatrial and biventricular enlargement, mild pulmonary hypertension with RVSP of 37, left ventricular hypertrophy, moderate mitral valve regurgitation, trace aortic and tricuspid regurgitation COVID-19 (05/2022) 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 History of aortic aneurysm Liver cirrhosis Malignant neoplasm of urinary bladder Type 2 diabetes mellitus without complication, without long-term current use of insulin Weight loss Surgical History Surgical History History of implantable cardioverter-defibrillator (ICD) insertion History of percutaneous coronary intervention Family History Family History Mother Family history of type 2 diabetes mellitus Social History Social History (Updated 11/26/22 @ 22:36 by Moon Cedeno DO) Social History: The patient lives with his of over 50 years. 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 He and his have 3 children. Code status: Full code Smoking status: Never smoker Second hand tobacco smoke exposure: Yes Alcohol intake: never Substance use: never Substance use type: does not use Lack of Transportation: No Lack of Food: Never True Current Housing: I Have Housing Concerned About Future Housing: No Difficulty Paying Gas/Electric Bills: No Difficulty Paying for Meds: No Currently Unemployed: No Education: High School Diploma/GED Difficulty w/ Childcare or Family Care: No Meds Home Medications and Allergies Home Medications Medication Instructions Recorded Confirmed Type aspirin 81 mg tablet,delayed 81 mg PO DAILY 09/09
--- NOTE | 2022-11-26 23:44 | ADMGEN ---
This patient, Casey Orellana, was admitted to [facility] Surg Room 322-02 at 2054. Patient/family oriented to hospital policies and general routines including ID bracelet, bed and alarms, visiting hours, pain management, procedures, bathroom and other care routines, personal items, smoking policy, room service/diet, and visiting hours. Information on how to activate the Rapid Response Team has been discussed. Patient/Family are encouraged to report perceived risks to care and to ask questions if they do not understand what they are told or what they should do.
[2022-11-26 23:46] LABS: Anion Gap 8 mmol/L (8-16); Blood Urea Nitrogen 28 mg/dL (9-20); Calcium 8.7 mg/dL (8.4-10.2); Carbon Dioxide 20 mmol/L (22-30); Chloride 102 mmol/L (98-107); Estimated CRCL calculation 38 ml/min; Estimated Glomerular Filt Rate 39; Glucose 96 mg/dL (65-110); Potassium 4.7 mmol/L (3.4-5.0); Sodium 130 mmol/L (137-145)
[2022-11-27] VITALS (20 sets, daily range): BP systolic 96–140; BP diastolic 48–89; PULSE 73–140; RESP 14–22; TEMP 36.3–39.9; O2SAT 96–99; BMI 25.9
[2022-11-27 04:19] LABS: Glucose Point of Care 84 mg/dl (65-105)
[2022-11-27] MEDS: SODIUM CHLORIDE 0.9% IV 1,000 ML 100 ML IV CONT ×2 (06:09→15:30)
[2022-11-27 07:06] LABS: Hematocrit 37.5 % (42.0-52.0); Mean Corpuscular Hemoglobin 27.6 pg (26-34); Mean Corpuscular Volume 86.4 fl (80-100); Mean Platelet Volume 8.5 fl (7.4-10.4); Platelet Count Result 174 k/mm3 (150-375); Red Blood Count 4.34 M/mm3 (4.6-6.20); Red Cell Distribution Width 16.8 % (11.5-14.5); White Blood Count 5.5 K/mm3 (4.5-10.0)
[2022-11-27 07:18] LABS: Anion Gap 7 mmol/L (8-16); Blood Urea Nitrogen 28 mg/dL (9-20); Calcium 8.8 mg/dL (8.4-10.2); Carbon Dioxide 22 mmol/L (22-30); Chloride 102 mmol/L (98-107); Estimated CRCL calculation 38 ml/min; Estimated Glomerular Filt Rate 39; Glucose 94 mg/dL (65-110); Potassium 4.6 mmol/L (3.4-5.0); Sodium 131 mmol/L (137-145)
[2022-11-27 07:55] LABS: Glucose Point of Care 88 mg/dl (65-105)
--- NOTE | 2022-11-27 08:03 | PM.IMPN ---
Progress Note: A&P Assessment and Plan (1) Sepsis: Qualifiers: Sepsis acute organ dysfunction status: with acute organ dysfunction Sepsis type: sepsis due to unspecified organism Severe sepsis acute organ dysfunction type: encephalopathy Severe sepsis shock status: without septic shock Qualified Code(s): A41.9 - Sepsis, unspecified organism; R65.20 - Severe sepsis without septic shock; G93.40 - Encephalopathy, unspecified Code(s): A41.9 - Sepsis, unspecified organism Status: Acute Assessment and Plan: HR>100, Temp>38C, with abnormal UA meeting sepsis criteria. Patient given 3L IV fluids in ED and continued on maintenance IV fluids. IV Rocephin initiated in the ED and continued. Lactic acid 2.2 on admission and down to 1.7 with repeat. Cultures pending. Monitor hemodynamics. (2) Acute UTI: Code(s): N39.0 - Urinary tract infection, site not specified Status: Acute Assessment and Plan: Patient presented to the emergency department with complaints of altered mental status, fever, and family reports change in urine via urostomy bag. He has a history of frequent urinary tract infections and reportedly has not been taking his preventative antibiotics. UA shows turbid, yellow urine with trace leukocytes, 21-50 wbc's, no epi cells, some bacteria and yeast. Patient given IV Rocephin 1 g in the ED. Upon admission to the floor patient is still febrile, T-max 103.8?. Increase Rocephin to 2 g IV Q 24 hours for now. Urine and blood cultures pending Continue acetaminophen IV/p.o. For fevers. Patient has a history of liver cirrhosis will attempt to avoid NSAID use. WBC 5.5. CRP 1.8. Check procalcitonin. Trend CBC, CRP and procalcitonin (3) Acute kidney injury: Code(s): N17.9 - Acute kidney failure, unspecified Status: Acute Assessment and Plan: Appears to be acute on chronic kidney disease. BUN 28, Cr 1.9 and GFR 39 on admission. No recent labs, however, in 2020 creatinine range 1.2-1.9, suggesting some component of chronic disease. Patient admitted for sepsis and could be due to acute infection and dehydration. CT also notable for lytic lesion to L5 that is new and given this there is some suspicion for multiple myeloma. Trend renal function panel. Monitor daily weights and I/Os. Renal US obtained and reviewed by today's urologist who reported hydronephrosis is not present. B/L kidney stones present, but nonobstructing. (4) Acute metabolic encephalopathy: Code(s): G93.41 - Metabolic encephalopathy Status: Acute Assessment and Plan: Presumed secondary to acute infection. CT head negative for acute disease. Patient has a pacemaker/AICD and MRI cannot be safely done at this facility. Monitor neuro status. Continue to treat as above. (5) Acute hyponatremia: Code(s): E87.1 - Hypo-osmolality and hyponatremia Status: Acute Assessment and Plan: Sodium 129 on admission. No prior history of hyponatremia. prior labs indicate sodium typically 135 Hold diuretics. Continue IV fluids. Trend sodium. Continue IV hydration. (6) Lytic lesion of bone on x-ray: Code(s): M89.9 - Disorder of bone, unspecified Status: Acute Assessment and Plan: CT scan notable for new L5 lytic lesion. Patient reports having lower back pain for approximately 5 months. He also endorses unplanned weight loss at least 60 pounds in the past 6 months. Hgb 12 mild anemia, calcium 8.8-10 and not elevated, but patient does have CKD with possible worsening. Multiple myeloma work-up initiated and Oncology referral would be beneficial. Bone scan ordered and pending. SPEP, UPEP, free light chains and immunoglobulins drawn and pending. (7) Type 2 diabetes mellitus without complication, without long-term current use of insulin: Code(s): E11.9 - Type 2 diabetes mellitus without complications Statu
[2022-11-27] MEDS: ASPIRIN 81 MG ENTERIC TABLET PO (08:14)
[2022-11-27] MEDS: CLOPIDOGREL BISULFATE 75 MG TABLET PO (08:14)
[2022-11-27] MEDS: ACETAMINOPHEN 325 MG TABLET 650 MG PO ×2 (08:14→15:41)
[2022-11-27] MEDS: ATORVASTATIN 40 MG TABLET PO (08:14)
[2022-11-27] MEDS: ENOXAPARIN 40 MG/0.4 ML SYRINGE SUB-Q (08:14)
[2022-11-27 08:20] LABS: Lactate Dehydrogenase 227 U/L (120-246)
[2022-11-27 11:47] LABS: Glucose Point of Care 91 mg/dl (65-105)
[2022-11-27] MEDS: CYCLOBENZAPRINE HCL 5 MG TABLET PO (13:27)
--- NOTE | 2022-11-27 13:48 | PC.NURSE ---
24 hour urine started at 1345.
[2022-11-27] MEDS: METOPROLOL TARTRATE INJ 5 MG/5 ML VIAL 2.5 MG IV PUSH (16:01)
[2022-11-27 16:17] LABS: Glucose Point of Care 106 mg/dl (65-105)
[2022-11-27] MEDS: cefTRIAXone 2 GM/NS 100 ML 2 GM/100 ML BAG IVPB (17:43)
[2022-11-27] MEDS: METOPROLOL TARTRATE 50 MG TAB PO (17:50)
[2022-11-27 20:46] LABS: Glucose Point of Care 150 mg/dl (65-105)
[2022-11-28] VITALS (22 sets, daily range): BP systolic 85–117; BP diastolic 55–60; PULSE 91–108; RESP 14–22; TEMP 37.1–39.3; O2SAT 94–97
[2022-11-28] MEDS: SODIUM CHLORIDE 0.9% IV 1,000 ML 100 ML IV CONT ×2 (02:15→16:15)
--- NOTE | 2022-11-28 07:42 | PM.IMPN ---
Progress Note: A&P Assessment and Plan (1) Sepsis: Qualifiers: Sepsis acute organ dysfunction status: with acute organ dysfunction Sepsis type: sepsis due to unspecified organism Severe sepsis acute organ dysfunction type: encephalopathy Severe sepsis shock status: without septic shock Qualified Code(s): A41.9 - Sepsis, unspecified organism; R65.20 - Severe sepsis without septic shock; G93.40 - Encephalopathy, unspecified Code(s): A41.9 - Sepsis, unspecified organism Status: Acute Assessment and Plan: HR>100, Temp>38C, with abnormal UA meeting sepsis criteria. Patient given 3L IV fluids in ED and continued on maintenance IV fluids. IV Rocephin initiated in the ED and continued. Lactic acid 2.2 on admission and down to 1.7 with repeat. Cultures pending. Monitor hemodynamics. Patient still febrile. Rocephin was increased to 2 grams yesterday. Skeletal survey suggests L5 lytic lesion seen on CT may be infectious given progression in 3 months. Unable to obtain MRI due to pacemaker. Add Vancomycin IV pharmacy to dose. Consider transthoracic echocardiogram and if infectious source cannot be identified or if blood cultures are positive. CRP 2.0 and procalcitonin 0.6 suggesting possible sepsis (of note procalcitonin was drawn after antibiotics were initiated). Continue to trend CRP and procalcitonin. (2) Acute UTI: Code(s): N39.0 - Urinary tract infection, site not specified Status: Suspected Assessment and Plan: Patient presented to the emergency department with complaints of altered mental status, fever, and family reports change in urine via urostomy bag. He has a history of frequent urinary tract infections and reportedly has not been taking his preventative antibiotics. UA shows turbid, yellow urine with trace leukocytes, 21-50 wbc's, no epi cells, some bacteria and yeast. Patient given IV Rocephin 1 g in the ED. Upon admission to the floor patient is still febrile, T-max 103.8?. Increase Rocephin to 2 g IV Q 24 hours for now. Urine culture is negative to date and 11/26 blood cultures negative to date, however patient is still febrile. Repeat blood cultures x2 today 11/28. Continue acetaminophen IV/p.o. For fevers. Patient has a history of liver cirrhosis will attempt to avoid NSAID use. WBC 5.5. CRP 1.8 to 2.0, mildly increased from admission. Check procalcitonin 0.6. Trend CBC, CRP and procalcitonin (3) Acute kidney injury: Code(s): N17.9 - Acute kidney failure, unspecified Status: Acute Assessment and Plan: Appears to be acute on chronic kidney disease. BUN 28, Cr 1.9 and GFR 39 on admission. No recent labs, however, in 2020 creatinine range 1.2-1.9, suggesting some component of chronic disease. Patient admitted for sepsis and could be due to acute infection and dehydration. CT also notable for lytic lesion to L5 that is new and given this there is some suspicion for multiple myeloma. Trend renal function panel. Monitor daily weights and I/Os. Renal US obtained and reviewed by today's urologist who reported hydronephrosis is not present. B/L kidney stones present, but nonobstructing. 11/28 slightly improved on IV fluids. BUN 27, creatinine 1.4, GFR 49. Sodium 130, potassium 4.1, chloride 104, carbon dioxide 18, anion gap 8. Continue to monitor (4) Acute metabolic encephalopathy: Code(s): G93.41 - Metabolic encephalopathy Status: Acute Assessment and Plan: Presumed secondary to acute infection. CT head negative for acute disease. Patient has a pacemaker/AICD and MRI cannot be safely done at this facility. Monitor neuro status. Continue to treat as above. 11/28 somewhat improved today. Continue antibiotic therapy. (5) Acute hyponatremia: Code(s): E87.1 - Hypo-osmolality and hyponatremia Status: Acute Assessment and Plan: Sodium 129 on admission. No prior history of hyponatremia. prior l
[2022-11-28 07:43] LABS: Ammonia < 9 umol/L (9-30)
[2022-11-28 07:50] LABS: Alanine Aminotransferase 38 U/L (6-50); Alkaline Phosphatase 186 U/L (38-126); Anion Gap 8 mmol/L (8-16); Aspartate Amino Transferase 94 U/L (17-59); Bilirubin,Total 0.9 mg/dL (0.2-1.3); Blood Urea Nitrogen 27 mg/dL (9-20); Calcium 8.3 mg/dL (8.4-10.2); Carbon Dioxide 18 mmol/L (22-30); Chloride 104 mmol/L (98-107); Estimated CRCL calculation 46 ml/min; Estimated Glomerular Filt Rate 49; Glucose 118 mg/dL (65-110); Potassium 4.1 mmol/L (3.4-5.0); Sodium 130 mmol/L (137-145)
[2022-11-28 07:54] LABS: Basophils Percent Auto 0.6 % (0.2-1.2); Eosinophils Percent Auto 0.1 % (0-4.4); Hematocrit 33.1 % (42.0-52.0); Hemoglobin 10.8 g/dL (14.0-18.0); Immature Granulocyte Absolute 0.03 K/mm3 (0.00-0.031); Immature Granulocyte Percent A 0.4 % (0-0.5); Lymphocytes Absolute Auto 1.58 K/mm3 (0.9-3.2); Lymphocytes Percent Auto 22.3 % (18.3-44.2); Mean Corpuscular HGB Conc 32.6 g/dl (32-36); Mean Corpuscular Hemoglobin 27.6 pg (26-34); Mean Corpuscular Volume 84.7 fl (80-100); Monocytes Absolute Auto 1.1 K/mm3 (0.1-0.6); Monocytes Percent Auto 15.8 % (2.6-8.5); Neutrophils Absolute Auto 4.3 K/mm3 (1.3-6.7); Neutrophils Percent Auto 60.8 % (45.5-73.1); Platelet Count Result 181 k/mm3 (150-375); Red Blood Count 3.91 M/mm3 (4.6-6.20); Red Cell Distribution Width 16.9 % (11.5-14.5); White Blood Count 7.1 K/mm3 (4.5-10.0)
[2022-11-28 08:04] LABS: Glucose Point of Care 125 mg/dl (65-105)
[2022-11-28] MEDS: METOPROLOL TARTRATE 50 MG TAB PO (09:15)
[2022-11-28] MEDS: CYCLOBENZAPRINE HCL 5 MG TABLET PO (09:16)
[2022-11-28] MEDS: ASPIRIN 81 MG ENTERIC TABLET PO (09:16)
[2022-11-28] MEDS: ENOXAPARIN 40 MG/0.4 ML SYRINGE SUB-Q (09:16)
[2022-11-28] MEDS: CLOPIDOGREL BISULFATE 75 MG TABLET PO (09:17)
[2022-11-28] MEDS: ATORVASTATIN 40 MG TABLET PO (09:17)
[2022-11-28 09:18] LABS: Procalcitonin 0.6 ng/mL
[2022-11-28] MEDS: LIDOCAINE 5% PATCH 1 PATCH TRANSDERM (09:34)
[2022-11-28 11:37] LABS: Glucose Point of Care 207 mg/dl (65-105)
[2022-11-28] MEDS: INSULIN ASPART (*BKC) 100 UNITS/ML SUB-Q (11:46)
--- NOTE | 2022-11-28 15:46 | PCOTNOTE ---
Attempted OT evaluation, RN reports to hold evaluation today due to spike in fever. Will follow.
[2022-11-28] MEDS: cefTRIAXone 2 GM/NS 100 ML 2 GM/100 ML BAG IVPB (16:18)
[2022-11-28 16:39] LABS: Glucose Point of Care 133 mg/dl (65-105)
[2022-11-28] MEDS: ACETAMINOPHEN 325 MG TABLET 650 MG PO ×2 (18:38→22:54)
[2022-11-28 21:28] LABS: Lactic Acid Reflex 2.2 mmol/L (0.7-2.0)
[2022-11-28 21:31] LABS: Appearance Urine Cloudy (Clear); Bacteria Urine None Seen /hpf; Bilirubin Urine Negative (Negative); Blood Urine Negative (Negative); Budding Yeast Urine Present /hpf; Color Urine Yellow (Yellow); Glucose Urine UA 2+ mg/dL (Negative); Ketones Urine Negative (Negative); Leukocyte Esterase Ur Negative LEU/UL (Negative); Need Manual Microscopic Reviewed; Nitrate Urine Negative (Negative); Protein Urine Trace mg/dL (Negative); Squamous Epithelial Cell Urine None seen /hpf (Few); Urobilinogen Urine 0.2 mg/dL (<2.0); WBC Urine 21-50 /hpf; pH Urine 5.5 (5.0-9.0)
[2022-11-28 21:31] LABS: Glucose Point of Care 128 mg/dl (65-105)
[2022-11-28] MEDS: SODIUM CHLORIDE 0.9% IV 1,000 ML 999 ML IV CONT (21:32)
[2022-11-28 21:33] LABS: RBC Urine 0-2 /hpf (0-2)
[2022-11-28 21:34] LABS: Add Urine Microscopic? YES
[2022-11-29] VITALS (13 sets, daily range): BP systolic 96–110; BP diastolic 52–71; PULSE 95–116; RESP 14–24; TEMP 36.8–38.8; O2SAT 96–99
[2022-11-29 00:17] LABS: Reflex Lactic Acid Yes or No Add Lactic
[2022-11-29 01:27] LABS: Lactic Acid 2.6 mmol/L (0.7-2.0)
[2022-11-29] MEDS: SODIUM CHLORIDE 0.9% IV 1,000 ML 100 ML IV CONT ×2 (02:32→13:10)
[2022-11-29] MEDS: PIPERACILLN/TAZ 3.375GM/NS50ML 3.375 GM/50 ML BAG IVPB (02:32)
[2022-11-29] MEDS: ACETAMINOPHEN 325 MG TABLET 650 MG PO ×5 (02:55→21:16)
[2022-11-29 06:59] LABS: Basophils Percent Auto 0.6 % (0.2-1.2); Eosinophils Percent Auto 0.3 % (0-4.4); Hematocrit 33.1 % (42.0-52.0); Hemoglobin 10.9 g/dL (14.0-18.0); Immature Granulocyte Absolute 0.02 K/mm3 (0.00-0.031); Immature Granulocyte Percent A 0.3 % (0-0.5); Lymphocytes Absolute Auto 1.27 K/mm3 (0.9-3.2); Lymphocytes Percent Auto 19.9 % (18.3-44.2); Mean Corpuscular HGB Conc 32.9 g/dl (32-36); Mean Corpuscular Hemoglobin 27.7 pg (26-34); Mean Platelet Volume 8.8 fl (7.4-10.4); Monocytes Absolute Auto 0.8 K/mm3 (0.1-0.6); Monocytes Percent Auto 12.7 % (2.6-8.5); Neutrophils Absolute Auto 4.2 K/mm3 (1.3-6.7); Neutrophils Percent Auto 66.2 % (45.5-73.1); Platelet Count Result 165 k/mm3 (150-375); Red Blood Count 3.94 M/mm3 (4.6-6.20); Red Cell Distribution Width 16.7 % (11.5-14.5); White Blood Count 6.4 K/mm3 (4.5-10.0)
[2022-11-29 07:08] LABS: Anion Gap 8 mmol/L (8-16); Blood Urea Nitrogen 22 mg/dL (9-20); Carbon Dioxide 18 mmol/L (22-30); Chloride 105 mmol/L (98-107); Potassium 3.8 mmol/L (3.4-5.0); Sodium 131 mmol/L (137-145)
[2022-11-29 07:09] LABS: Alanine Aminotransferase 36 U/L (6-50); Albumin Level 3.2 g/dL (3.5-5.1); Alkaline Phosphatase 162 U/L (38-126); Aspartate Amino Transferase 87 U/L (17-59); Calcium 8.3 mg/dL (8.4-10.2); Estimated CRCL calculation 50 ml/min; Estimated Glomerular Filt Rate 54; Glucose 105 mg/dL (65-110)
[2022-11-29 08:04] LABS: Glucose Point of Care 102 mg/dl (65-105)
--- NOTE | 2022-11-29 08:04 | PM.IMPN ---
Progress Note: A&P Assessment and Plan (1) Sepsis: Qualifiers: Sepsis acute organ dysfunction status: with acute organ dysfunction Sepsis type: sepsis due to unspecified organism Severe sepsis acute organ dysfunction type: encephalopathy Severe sepsis shock status: without septic shock Qualified Code(s): A41.9 - Sepsis, unspecified organism; R65.20 - Severe sepsis without septic shock; G93.40 - Encephalopathy, unspecified Code(s): A41.9 - Sepsis, unspecified organism Status: Acute Assessment and Plan: HR>100, Temp>38C, with abnormal UA meeting sepsis criteria. Patient given 3L IV fluids in ED and continued on maintenance IV fluids. IV Rocephin initiated in the ED and continued. Lactic acid 2.2 on admission and down to 1.7 with repeat. Cultures pending. Monitor hemodynamics. Patient still febrile. Rocephin was increased to 2 grams yesterday. Skeletal survey suggests L5 lytic lesion seen on CT may be infectious given progression in 3 months. Unable to obtain MRI due to pacemaker. Add Vancomycin IV pharmacy to dose. Consider transthoracic echocardiogram and if infectious source cannot be identified or if blood cultures are positive. CRP 2.0 and procalcitonin 0.6 suggesting possible sepsis (of note procalcitonin was drawn after antibiotics were initiated). Continue to trend CRP and procalcitonin. 11/29- Temp >102F overnight, repeat lactic acid up to 2.6 and repeat back to 2.2 after fluid bolus. Repeat urine culture sent. check echocardiogram and repeat CT chest, abdomen and pelvis. repeat blood cultures pending from 11/28. Rocephin changed to Zosyn overnight, however, with KRYSTA and current vancomycin use, will change to Cefepime 2 grams Q8 hours. add micafungin 100 mg IV daily for questionable invasive candidemia with yeast noted in initial UA and patient is still febrile without leukocytosis. Add metronidazole to cover anaerobes for possible aspiration. Check swallow study. (2) Acute UTI: Code(s): N39.0 - Urinary tract infection, site not specified Status: Suspected Assessment and Plan: Patient presented to the emergency department with complaints of altered mental status, fever, and family reports change in urine via urostomy bag. He has a history of frequent urinary tract infections and reportedly has not been taking his preventative antibiotics. UA shows turbid, yellow urine with trace leukocytes, 21-50 wbc's, no epi cells, some bacteria and yeast. Patient given IV Rocephin 1 g in the ED. Upon admission to the floor patient is still febrile, T-max 103.8?. Increase Rocephin to 2 g IV Q 24 hours for now. Urine culture is negative to date and 11/26 blood cultures negative to date, however patient is still febrile. Repeat blood cultures x2 today 11/28. Continue acetaminophen IV/p.o. For fevers. Patient has a history of liver cirrhosis will attempt to avoid NSAID use. WBC 5.5. CRP 1.8 to 2.0, mildly increased from admission. Check procalcitonin 0.6. Trend CBC, CRP and procalcitonin 11/29 repeat urine culture pending. (3) Acute kidney injury: Code(s): N17.9 - Acute kidney failure, unspecified Status: Acute Assessment and Plan: Appears to be acute on chronic kidney disease. BUN 28, Cr 1.9 and GFR 39 on admission. No recent labs, however, in 2020 creatinine range 1.2-1.9, suggesting some component of chronic disease. Patient admitted for sepsis and could be due to acute infection and dehydration. CT also notable for lytic lesion to L5 that is new and given this there is some suspicion for multiple myeloma. Trend renal function panel. Monitor daily weights and I/Os. Renal US obtained and reviewed by today's urologist who reported hydronephrosis is not present. B/L kidney stones present, but nonobstructing. 11/28 slightly improved on IV fluids. BUN 27, creatinine 1.4, GFR 49. Sodium 130, potassium 4.1, chloride 104, carbon dioxide 18, anion gap 8. Continue to
--- NOTE | 2022-11-29 08:16 | PCOTNOTE ---
Attempted OT evaluation, per RN patient is not appropriate to see. Will follow.
[2022-11-29] MEDS: ATORVASTATIN 40 MG TABLET PO (08:33)
[2022-11-29] MEDS: ASPIRIN 81 MG ENTERIC TABLET PO (08:33)
[2022-11-29] MEDS: CLOPIDOGREL BISULFATE 75 MG TABLET PO (08:33)
[2022-11-29] MEDS: LIDOCAINE 5% PATCH 1 PATCH TRANSDERM (08:33)
[2022-11-29] MEDS: ENOXAPARIN 40 MG/0.4 ML SYRINGE SUB-Q (08:34)
[2022-11-29] MEDS: METOPROLOL TARTRATE 25 MG TABLET PO (08:34)
[2022-11-29 08:41] LABS: Lactic Acid Reflex 2.2 mmol/L (0.7-2.0)
[2022-11-29] MEDS: CEFEPIME 2 GM/NS 50 ML 2 GM/50 ML BAG IVPB ×2 (08:49→21:19)
[2022-11-29] MEDS: MICAFUNGIN SODIUM 100 MG in SODIUM CHLORIDE 0.9% IV 100 ML IVPB (09:21)
[2022-11-29 09:35] LABS: Influenza A QL RT-PCR Negative (Negative); Influenza B QL RT-PCR Negative (Negative); RSV RNA, RT-PCR Negative (Negative); SARS-CoV-2 RNA PCR Negative (Negative)
[2022-11-29 11:55] LABS: Glucose Point of Care 171 mg/dl (65-105)
[2022-11-29] MEDS: metroNIDAZOLE 500 MG/ISO 100ML 500 MG/100 ML BAG 100 MG IVPB ×2 (13:10→22:03)
--- NOTE | 2022-11-29 16:34 | PM.IMPN ---
Progress Note: A&P Assessment and Plan (1) Sepsis: Qualifiers: Sepsis type: sepsis due to unspecified organism Sepsis acute organ dysfunction status: with acute organ dysfunction Severe sepsis acute organ dysfunction type: encephalopathy Severe sepsis shock status: without septic shock Qualified Code(s): A41.9 - Sepsis, unspecified organism; R65.20 - Severe sepsis without septic shock; G93.40 - Encephalopathy, unspecified Code(s): A41.9 - Sepsis, unspecified organism Status: Acute Assessment and Plan: HR>100, Temp>38C, with abnormal UA meeting sepsis criteria. Patient given 3L IV fluids in ED and continued on maintenance IV fluids. IV Rocephin initiated in the ED and continued. Lactic acid 2.2 on admission and down to 1.7 with repeat. Cultures with negative blood culture x2 Remains febrile. Unclear etiology echo to rule out endocarditis. CRP is elevated procalcitonin is elevated. Agree with broadening antibiotic coverage to vancomycin cefepime and Flagyl. Micafungin added Abdominal aortic aneurysm noted 3.1 cm in size around the level of L3 vertebra. Swallow study planned Unable to MRI due to pacemaker for his L5 lytic lesion. Reviewed images with radiologist (2) Acute UTI: Code(s): N39.0 - Urinary tract infection, site not specified Status: Suspected Assessment and Plan: Patient presented to the emergency department with complaints of altered mental status, fever, and family reports change in urine via urostomy bag. He has a history of frequent urinary tract infections and reportedly has not been taking his preventative antibiotics. UA shows turbid, yellow urine with trace leukocytes, 21-50 wbc's, no epi cells, some bacteria and yeast. Patient given IV Rocephin 1 g in the ED. Upon admission to the floor patient is still febrile, T-max 103.8?. Increase Rocephin to 2 g IV Q 24 hours for now. Urine culture is negative to date and 11/26 blood cultures negative to date, however patient is still febrile. Repeat blood cultures x2 today 11/28. Continue acetaminophen IV/p.o. For fevers. Patient has a history of liver cirrhosis will attempt to avoid NSAID use. WBC 5.5. CRP 1.8 to 2.0, mildly increased from admission. Check procalcitonin 0.6. Trend CBC, CRP and procalcitonin 11/29 repeat urine culture pending. (3) Acute kidney injury: Code(s): N17.9 - Acute kidney failure, unspecified Status: Acute Assessment and Plan: Appears to be acute on chronic kidney disease. BUN 28, Cr 1.9 and GFR 39 on admission. No recent labs, however, in 2020 creatinine range 1.2-1.9, suggesting some component of chronic disease. Patient admitted for sepsis and could be due to acute infection and dehydration. CT also notable for lytic lesion to L5 that is new and given this there is some suspicion for multiple myeloma. Trend renal function panel. Monitor daily weights and I/Os. Renal US obtained and reviewed by today's urologist who reported hydronephrosis is not present. B/L kidney stones present, but nonobstructing. 11/28 slightly improved on IV fluids. BUN 27, creatinine 1.4, GFR 49. Sodium 130, potassium 4.1, chloride 104, carbon dioxide 18, anion gap 8. Continue to monitor 11/29 improving. Cr 1.3 today (4) Acute metabolic encephalopathy: Code(s): G93.41 - Metabolic encephalopathy Status: Acute Assessment and Plan: Presumed secondary to acute infection. CT head negative for acute disease. Patient has a pacemaker/AICD and MRI cannot be safely done at this facility. Monitor neuro status. Continue to treat as above. 11/28 somewhat improved today. Continue antibiotic therapy. 11/29 Patient has improved cognition, but increased lethargy noted especially with fevers. (5) Acute hyponatremia: Code(s): E87.1 - Hypo-osmolality and hyponatremia Status: Acute Assessment and Plan: Sodium 129 on admission. No prior hist
[2022-11-29 16:59] LABS: Glucose Point of Care 131 mg/dl (65-105)
[2022-11-29 17:30] LABS: Erythrocyte Sedimentation Rate 99 mm/hr (0-20)
[2022-11-29 20:16] LABS: Glucose Point of Care 185 mg/dl (65-105)
[2022-11-30] VITALS (7 sets, daily range): BP systolic 92–105; BP diastolic 52–60; PULSE 91–112; RESP 14–20; TEMP 36.5–36.9; O2SAT 96–99
--- NOTE | 2022-11-30 | ECHO_ITS ---
Patient Info Name: Casey Orellana Age: 77 years : 1945 Gender: Male Ht: 73 in Wt: 198 lbs BSA: 2.16 m2 HR: 94 bpm BP: 95 / 59 mmHg Heart Rhythm: Sinus Rhythm Technical Quality: Fair Exam Date: 11/30/2022 1:37 PM Exam Location: [facility] Pulmonary Exam Room: [facility] Patient Status: Inpatient Admit Date: 11/26/2022 Staff Ordering Physician: Chanel Stallworth APRN [employer] Supervisor: Ember London RDCS Attending Provider: Moon Cedeno DO Referring Physician: Federica RINCON; Exam Type: CA echo dop color flow w con Study Info Indications - SEPSIS CHF AICD Complete two-dimensional, color flow and Doppler transthoracic echocardiogram is performed with contrast to opacify the left ventricle and to improve the deliniation of the left ventricle endocardial borders. Contrast/Agitated Saline Contrast/Ag. Saline: Definity Amount: 2.00 ml Administered By: Ember London [facility] [place] Existing IV Access: Yes IV Access Condition: patent with no signs of infiltration Summary 1. Left ventricular dilation with severe global systolic hypokinesis/low ejection fraction. 2. Left atrial enlargement. 3. Very small amount of mitral valve regurgitation due to annular enlargement. 4. Presence of pacemaker/ICD lead noted. Left Ventricle Left ventricular chamber dimension is moderately enlarged. Left ventricular systolic function is severely reduced, estimated at 20-25%. The left ventricular diastolic function is grade I diastolic dysfunction. Right Ventricle Right ventricular chamber dimension is normal. Linear artifact in right ventricle suggestive of catheter(s), pacemaker lead(s), or ICD lead(s). Left Atria Left atrial chamber dimension is mildly enlarged. Right Atria Right atrial chamber dimension is normal. Aortic Valve The aortic valve is normal. Pulmonic Valve The pulmonic valve is not well visualized. Mitral Valve The mitral valve has normal leaflets. There is trace mitral valve regurgitation. Tricuspid Valve The tricuspid valve leaflets are normal. There is trace tricuspid valve regurgitation. Pericardium/Pleural The pericardium appears normal. Aorta The aortic root size at the sinus of Valsalva is normal. Left Ventricular Outflow Tract Name Value Normal LVOT 2D LVOT Diameter 2.13 cm LVOT Doppler LVOT Peak Gradient 3 mmHg LVOT Mean Gradient 3 mmHg LVOT VTI 14.62 cm LVOT VTI/AV VTI Ratio 1.06 LVOT Stroke Volume 52.15 ml LVOT CO 16.95 l/min LVOT CI 7.85 L/min/m2 Pulmonic Valve Name Value Normal PV Doppler PV Peak Gradient 7 mmHg Mitral Valve -------
[2022-11-30] MEDS: ACETAMINOPHEN 325 MG TABLET 650 MG PO ×5 (00:49→16:04)
[2022-11-30] MEDS: SODIUM CHLORIDE 0.9% IV 1,000 ML 100 ML IV CONT (04:16)
[2022-11-30] MEDS: metroNIDAZOLE 500 MG/ISO 100ML 500 MG/100 ML BAG 100 MG IVPB ×2 (05:19→14:13)
[2022-11-30 06:36] LABS: Basophils Percent Auto 0.4 % (0.2-1.2); Eosinophils Absolute Auto 0.1 K/mm3 (0-0.3); Eosinophils Percent Auto 2.2 % (0-4.4); Hematocrit 31.5 % (42.0-52.0); Hemoglobin 10.1 g/dL (14.0-18.0); Immature Granulocyte Absolute 0.02 K/mm3 (0.00-0.031); Immature Granulocyte Percent A 0.4 % (0-0.5); Lymphocytes Percent Auto 15.3 % (18.3-44.2); Mean Corpuscular HGB Conc 32.1 g/dl (32-36); Mean Corpuscular Hemoglobin 28.3 pg (26-34); Mean Corpuscular Volume 88.2 fl (80-100); Mean Platelet Volume 9.8 fl (7.4-10.4); Monocytes Absolute Auto 0.5 K/mm3 (0.1-0.6); Monocytes Percent Auto 9.8 % (2.6-8.5); Neutrophils Absolute Auto 3.3 K/mm3 (1.3-6.7); Neutrophils Percent Auto 71.9 % (45.5-73.1); Platelet Count Result 133 k/mm3 (150-375); Red Blood Count 3.57 M/mm3 (4.6-6.20); Red Cell Distribution Width 16.7 % (11.5-14.5); White Blood Count 4.6 K/mm3 (4.5-10.0)
[2022-11-30 06:47] LABS: Lactic Acid Reflex 2.1 mmol/L (0.7-2.0)
[2022-11-30 06:51] LABS: Alanine Aminotransferase 40 U/L (6-50); Albumin Level 2.8 g/dL (3.5-5.1); Alkaline Phosphatase 147 U/L (38-126); Anion Gap 7 mmol/L (8-16); Aspartate Amino Transferase 84 U/L (17-59); Bilirubin,Total 0.9 mg/dL (0.2-1.3); Blood Urea Nitrogen 17 mg/dL (9-20); CRP 2.2 mg/dL (<1.0); Calcium 7.8 mg/dL (8.4-10.2); Carbon Dioxide 17 mmol/L (22-30); Chloride 104 mmol/L (98-107); Estimated CRCL calculation 58 ml/min; Estimated Glomerular Filt Rate > 60; Glucose 107 mg/dL (65-110); Potassium 3.7 mmol/L (3.4-5.0); Sodium 128 mmol/L (137-145)
[2022-11-30 07:18] LABS: Vancomycin Trough 9.7 ug/mL (10.0-20.0)
[2022-11-30 07:24] LABS: Procalcitonin 0.4 ng/mL
[2022-11-30 07:43] LABS: Hemoglobin A1C 5.2 % (<5.7)
[2022-11-30] MEDS: ASPIRIN 81 MG ENTERIC TABLET PO (07:57)
[2022-11-30] MEDS: CLOPIDOGREL BISULFATE 75 MG TABLET PO (07:57)
[2022-11-30] MEDS: METOPROLOL TARTRATE 25 MG TABLET PO (07:57)
[2022-11-30] MEDS: ENOXAPARIN 40 MG/0.4 ML SYRINGE SUB-Q (07:57)
[2022-11-30] MEDS: ATORVASTATIN 40 MG TABLET PO (07:57)
[2022-11-30] MEDS: LIDOCAINE 5% PATCH 1 PATCH TRANSDERM (07:57)
[2022-11-30 08:21] LABS: Glucose Point of Care 116 mg/dl (65-105)
[2022-11-30 09:33] LABS: Reflex Lactic Acid Yes or No Add Lactic
[2022-11-30] MEDS: CEFEPIME 2 GM/NS 50 ML 2 GM/50 ML BAG IVPB (09:42)
[2022-11-30 10:13] LABS: Lactic Acid 4.7 mmol/L (0.7-2.0)
--- NOTE | 2022-11-30 10:45 | PC.NURSE ---
Patient to ultrasound via bed.
[2022-11-30 10:49] LABS: Total Triiodothyronine (T3) 0.67 NG/ML (0.97-1.69)
[2022-11-30] MEDS: MICAFUNGIN SODIUM 100 MG in SODIUM CHLORIDE 0.9% IV 100 ML IVPB (11:06)
[2022-11-30 11:39] LABS: Lactic Acid Reflex 4.6 mmol/L (0.7-2.0)
[2022-11-30 11:39] LABS: Glucose Point of Care 166 mg/dl (65-105)
[2022-11-30] MEDS: SODIUM CHLORIDE 0.9% IV 250 ML IV CONT (12:01)
--- NOTE | 2022-11-30 12:38 | WPDNEURCNPN ---
Assessment and Plan Assessment and plan (1) Encephalopathy: Code(s): G93.40 - Encephalopathy, unspecified Status: Acute Plan encephalopathy multifactorial in origin with a urinary tract infection, electrolyte imbalance, sepsis, possibility of underlying malignancy plan evaluation is being done, head CT scan documented only chronic left occipital lobe, CT of the abdomen old documented abnormalities with new lytic lesion at L5 and renal ultrasound indicated for only right renal lower pole cyst with mild hydronephrosis and small calculus but no malignancy, his skeletal survey no suspicious lytic or blastic lesions particularly unable to clearly visualize the lytic lesion of L5 for which repeat bone survey suggested. Treatment as such Consult date: 11/30/22 HPI: Casey Orellana is a 77 year old male admitted to the hospital through the emergency room for the complaints of change in the mental status and with the possibility of sepsis in addition to history of bladder and prostatic cancer with urostomy. Patient reportedly as per the family has had increased altered mental status over the last several days patient is supposed to be on prophylactic antibiotics to help prevent urinary tract infection recurrence but unfortunately has not been taking the medications regularly. His ongoing medications include aspirin 81 mg daily ramipril 2.5 mg daily sulfamethoxazole 800 mg q.12 hours. He is not allergic to any medications. Has ongoing history of benign essential hypertension, left occipital lobe infarct, aortic aneurysm, cirrhosis of the liver, and malignant neoplasm of the urinary bladder, in addition to type 2 diabetes mellitus. Does have implantable cardioverted defibrillator and has undergone coronary intervention as well. Is not a smoker or drink initial exam in the Emergency Room documented generalized weakness, UA was abnormal, negative for influenza RSV and Co vid, CT abdomen negative except the infrarenal abdominal aortic aneurysm 3.1cm in size and bilaterally thrombosed internal iliac artery aneurysms. CT of the head documented left occipital lobe infarct with no acute bleed Review of Systems Review of Systems: All systems reviewed & are unremarkable except as noted in HPI and below [facility] Past Medical History Medical History (Updated 11/30/22 @ 12:51 by Aleksey Smith MD) Altered taste Benign essential hypertension Cardiomyopathy Echocardiogram 10/2020: EF 37-42%, biatrial and biventricular enlargement, mild pulmonary hypertension with RVSP of 37, left ventricular hypertrophy, moderate mitral valve regurgitation, trace aortic and tricuspid regurgitation Chronic HFrEF (heart failure with reduced ejection fraction) COVID-19 (05/2022) 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 History of aortic aneurysm Liver cirrhosis Malignant neoplasm of urinary bladder Type 2 diabetes mellitus without complication, without long-term current use of insulin Weight loss Surgical History Surgical History History of implantable cardioverter-defibrillator (ICD) insertion History of percutaneous coronary intervention Family History Family History Mother Family history of type 2 diabetes mellitus Social History Social History (Updated 11/26/22 @ 22:36 by Moon Cedeno DO) Social History: The patient lives with his of over 50 years. 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 He and his have 3 children. Code status: Full code Smoking status: Never smoker Second hand tobacco smoke exposure: Yes Alcohol intake: never Substance use: never Substance use type: does not use Lack of Transportation: No Lack of Food: Never True Current Housing: I Have Housing Concerned About Future Housing: No Difficulty Paying Gas/Electric Bills: No Difficulty Paying for Meds: No Currently Unemployed: No
--- NOTE | 2022-11-30 12:56 | PC.NURSE ---
Spoke to [facility] transfer center about patient transfer to [facility]. Updated nurse on all lines, current vital signs, and mentation status. Waiting for a bed to be open.
--- NOTE | 2022-11-30 13:38 | PC.NURSE ---
Called to inform Audrey of patient's pending transfer to [facility] to room 2313 bed A. Attempted to call report to facility, receiving nurse just went on lunch. Call back number provided and will call back in thirty minutes.
[2022-11-30] MEDS: PERFLUTREN LIPID MICROSPHERES 1.5 ML VIAL DILUTED TO 10 ML TOTAL VOLUME IV PUSH (14:10)
--- NOTE | 2022-11-30 15:46 | PCSTNOTE ---
Please refer to the Bedside Swallow Evaluation in the EMR. Please note, silent aspiration cannot be ruled out at bedside.
--- NOTE | 2022-11-30 17:29 | PM.TDS ---
Transfer Discharge Sum: Prov Provider Date of admission: 11/26/22 20:32 Primary care physician: Joseph Cook MD Admitting clinician: Moon Cedeno DO Consults: 11/27/22 Consult to Dietitian Routine Reason for Consult:: unintentional weight loss 11/30/22 10:45 Consult to Physician Routine Comment: left vm with jimenez [phone] (,) Consulting Provider: Eitan Campos call center support representative/MD group to consult: cardiology Reason for consultation: evaluate for endocarditis Has provider been notified: No 11/30/22 12:09 Consult to Physician Routine Comment: spoke to [phone] (,) Consulting Provider: Aleksey Smith call center support representative/MD group to consult: neurology Reason for consultation: altered mental status Has provider been notified: Yes DS: Admitting Diagnosis Discharge Date 11/30/22 Admitting Diagnosis Fever confusion DS: Discharge Diagnosis Discharge Diagnosis (1) Sepsis: Qualifiers: Sepsis type: sepsis due to unspecified organism Sepsis acute organ dysfunction status: with acute organ dysfunction Severe sepsis acute organ dysfunction type: encephalopathy Severe sepsis shock status: without septic shock Qualified Code(s): A41.9 - Sepsis, unspecified organism; R65.20 - Severe sepsis without septic shock; G93.40 - Encephalopathy, unspecified Code(s): A41.9 - Sepsis, unspecified organism Status: Acute (2) Acute UTI: Code(s): N39.0 - Urinary tract infection, site not specified Status: Suspected (3) Acute kidney injury: Code(s): N17.9 - Acute kidney failure, unspecified Status: Acute (4) Acute metabolic encephalopathy: Code(s): G93.41 - Metabolic encephalopathy Status: Acute (5) Acute hyponatremia: Code(s): E87.1 - Hypo-osmolality and hyponatremia Status: Acute (6) Lytic lesion of bone on x-ray: Code(s): M89.9 - Disorder of bone, unspecified Status: Acute (7) Type 2 diabetes mellitus without complication, without long-term current use of insulin: Code(s): E11.9 - Type 2 diabetes mellitus without complications Status: Chronic (8) Essential (primary) hypertension: Onset Date: 04/04/18 Code(s): I10 - Essential (primary) hypertension Status: Chronic (9) Chronic HFrEF (heart failure with reduced ejection fraction): Code(s): I50.22 - Chronic systolic (congestive) heart failure Status: Acute (10) Cardiomyopathy: Qualifiers: Cardiomyopathy type: dilated Qualified Code(s): I42.0 - Dilated cardiomyopathy Code(s): I42.9 - Cardiomyopathy, unspecified Status: Chronic (11) Liver cirrhosis: Code(s): K74.60 - Unspecified cirrhosis of liver Status: Chronic (12) Chronic low back pain: Code(s): M54.50 - Low back pain, unspecified; G89.29 - Other chronic pain Status: Acute (13) Protein-calorie malnutrition, moderate: Code(s): E44.0 - Moderate protein-calorie malnutrition Status: Acute Transfer Discharge Sum: Med Medications Active and Home Medications: Home Medications aspirin 81 mg tablet,delayed release 81 mg PO DAILY 09/27/20 [History Confirmed 11/26/22] ramipril 2.5 mg tablet 2.5 mg PO DAILY 10/09/20 [History Confirmed 11/26/22] atorvastatin 40 mg tablet 40 mg PO DAILY #20 tabs 11/04/20 [Rx Confirmed 11/26/22] metoprolol tartrate 100 mg tablet 100 mg PO DAILY #30 tabs 11/04/20 [Rx Confirmed 11/26/22] blood sugar diagnostic (Contour Next Test Strips) See Rx Instructions .Route .COMPLEX #200 strips 01/14/22 [Rx Confirmed 11/26/22] lancets 21 gauge (Comfort EZ Lancets) #200 ea 01/14/22 [Rx Confirmed 11/26/22] empagliflozin 10 mg tablet (Jardiance) 10 mg PO DAILY 04/13/22 [History Confirmed 11/26/22] clopidogrel 75 mg tablet 75 mg PO DAILY #90 tabs 07/13/22 [Rx Confirmed 11/26/22] furosemide 20 mg tablet 20 mg PO DAILY #30 tabs 08/14/22 [Rx Confirmed 11/26/22] sitagliptin phosphate 50 mg tablet (Januvia) 50 m
[2022-12-01 21:11] LABS: Kappa Lambda Free Ratio RU 3.81 (<=8.69); Lambda Free Light Chains RU 35.68 mg/L (<=3.79)
[2022-12-03 13:10] LABS: Immunoglobulin A 664 mg/dL (70-320); Immunoglobulin G 1725 mg/dL (600-1540); Immunoglobulin M 86 mg/dL (50-300)
[2022-12-03 19:44] LABS: Albumin 24 Hr Urine 34 %; Creatinine, 24 Hr Urine 1.41 g/24 h (0.50-2.15); Total Protein/Creatinine Ratio 557 mg/g creat (<100)
== END 2022-11-30 17:05 | disposition short-term general hospital (02) | DRG 871 ==
LOC: ANHED 18:20 → ANH3MEDSUR 21:16
PROVIDERS: Nurse Practitioner Family; Admitting Provider Internal Medicine; Emergency Provider Emergency Medicine; PCP Internal Medicine; Visit Provider Internal Medicine
DX: A41.9 Sepsis, unspecified organism (principal); G93.41 Metabolic encephalopathy; N17.9 Acute kidney failure, unspecified; E87.1 Hypo-osmolality and hyponatremia; E44.0 Moderate protein-calorie malnutrition; I42.0 Dilated cardiomyopathy; I50.42 Chronic combined systolic (congestive) and diastolic (congestive) heart failure; R65.20 Severe sepsis without septic shock; Z20.822 Contact with and (suspected) exposure to COVID-19; M89.9 Disorder of bone, unspecified; E11.9 Type 2 diabetes mellitus without complications; I11.0 Hypertensive heart disease with heart failure; K74.60 Unspecified cirrhosis of liver; M54.50 Low back pain, unspecified; G89.29 Other chronic pain; R41.0 Disorientation, unspecified; I71.40 Abdominal aortic aneurysm, without rupture, unspecified; Z68.22 Body mass index [BMI] 22.0-22.9, adult; Z85.46 Personal history of malignant neoplasm of prostate; Z85.51 Personal history of malignant neoplasm of bladder; Z79.82 Long term (current) use of aspirin; Z86.73 Personal history of transient ischemic attack (TIA), and cerebral infarction without residual deficits; Z86.16 Personal history of COVID-19; Z95.810 Presence of automatic (implantable) cardiac defibrillator
CPT/HCPCS: 36415; 70450; 71045; 71260; 74177; 76536; 76775; 77075; 80048; 80053; 80202; 81001; 81050; 82140; 82570; 82784; 82948; 83036; 83605; 83615; 84145; 84155; 84156; 84165; 84166; 84439; 84443; 84480; 85025; 85027; 85610; 85652; 85730; 86140; 87040; 87086; 87103; 87637; 92522; 92610; 93005; 96361; 96365; 96375; 97161; 97165; 99285; A9270; C8929; J0131; J0692; J0696; J1650; J1815; J2248; J2543; J3370; J7030; J7050; Q9957; Q9967

== ENCOUNTER 2023-02-11 09:41 | Outpatient (RCR) | payer MEDICARE, OTHER, SELFPAY ==
--- NOTE | 2023-02-11 10:46 | OPREHPOC ---
Outpatient Therapy Plan of Care This is a Multidisciplinary Plan of Care that may contain components documented by all disciplines (PT, OT, and ST.) PT Problem 1 PT Problem #1 Knowledge Deficit PT Goal 1 Goal Patient to demonstrate independence with HEP Target Visit 6 PT Problem 2 PT Problem #2 Pain PT Goal 1 Goal Patient to report highest pain at 2/10 Target Visit 12 PT Problem 3 PT Problem #3 Impaired Flexibility PT Goal 1 Goal Patient to demonstrate HS flexibility to 20 deg to improve ability to stand for prolonged periods Target Visit 12 PT Problem 4 PT Problem #4 Impaired Functional Mobil PT Goal 1 Goal 1. Patient to demonstarte 5/5 strength of B LE to return to house hold chores 2. Patient to report ability to stand for >1 hour with no increase in pain
--- NOTE | 2023-02-11 10:46 | PTOPEVAL1 ---
Assessment and note entered by Beatriz Martin DPT Evaluation Information Assessment Status Evaluation Diagnosis low back pain Onset 02/04/23 Subjective Information Patient reports that he has had low back pain for the last couple of years. He report pain got worse about 3 weeks ago when he slipped off the bumper of the tractor. He reports that pain is primarily in the low back and is there all the time with variable intensity. Patient reports pain is worse with standing, sitting for long periods of time and completing house hold tasks. He is retired now but still completes house hold and yard work. Reported Pain Level Pain Score 7: Self Report Assessment PT Clinical Summary Patient is a 77 year old male who presents to PT with low back pain. Patient demonstrates impaired posture, decreased lumbar mobility and decreased B LE strength impairing his ability to stand for prolonged periods, sit for long periods of time and completing house hold tasks. He would benefit from skilled PT to address impairments and return to PLOF. Plan of Care Interventions Gait Training,Hot Pack/Cold Pack,Manual Therapy, Neuro Re-education,Patient/Caregiver Educati, Therapeutic Activities,Therapeutic Exercise PT Services Indicated Yes Treatment Frequency and 2x weekly for 12 visits Duration These treatments will address the objective and functional deficits as defined above. The patient will be advanced safely and appropriately in order for the patient to progress towards his/her prior level of function. Additional exercises will be introduced and as well as a comprehensive home exercise program upon discharge, if needed, ?to ensure carryover of functional gains achieved in the clinic. This treatment plan has been reviewed and agreement upon by the patient.
== END 2023-03-01 10:00 | disposition other institution (70) ==
LOC: CHSPT 09:41
PROVIDERS: Visit Provider Nurse Practitioner Family
DX: M47.816 Spondylosis without myelopathy or radiculopathy, lumbar region (principal)
CPT/HCPCS: 97110; 97150; 97161

== ENCOUNTER 2023-03-09 23:02 | Observation (INO) | payer MEDICARE, OTHER, SELFPAY ==
--- NOTE | ~2023-03-09 | CT_ITS ---
CT head without contrast Indication: Status post fall COMPARISON: 11/26/2022 Technique: Serial scans were obtained through the brain without the administration of contrast. Dose reduction technique was used on this scan by utilizing automated exposure control and iterative recon struction technique. The dose-length product (DLP) was 1362.00 mGy-cm. Findings: There is no evidence of intracranial hemorrhage, mass lesion, or acute infarct. Chronic lef t occipital lobe infarct present. The ventricles and subarachnoid spaces are dilated, consistent with minimal atrophy. Low attenuation regions are seen within the periventricular white matter bilateral ly, likely representing changes from chronic microvascular ischemic disease. There is no evidence of edema, mass effect or midline shift. The visualized paranasal sinuses and mastoid air cells are florinda ar. Impression: No intracranial hemorrhage, mass, or acute infarct. Chronic left occipital lobe infarct. Atrophy and chronic white matter changes, as above. Reviewed, dictated and finalized at [facility]. Impression: No intracranial hemorrhage, mass, or acute infarct. Chronic left occipital lobe infarct. Atrophy and chronic white matter changes, as above.
--- NOTE | ~2023-03-09 | CT_ITS ---
CT of the Abdomen and Pelvis: Indication: UTI Technique: 2.5 mm axial scans were obtained through the abdomen and pelvis following intravenous adm inistration of 100 cc of Omnipaque 350. Dose reduction technique was used on this scan by utilizing a utomated exposure control and iterative reconstruction technique. The dose-length product (DLP) was 1 067.01 mGy-cm. COMPARISON: 11/29/2022 Findings: Scans through the lung bases are unremarkable. The liver, spleen, pancreas, gallbladder, adrenals and right kidney are within normal limits. 4 mm no nobstructing left renal stone noted. Aortic stent graft in place. No lymphadenopathy. No bowel obstruction or bowel wall thickening. There is no evidence to suggest acute appendicitis. Images through the pelvis were performed. 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 Patient is status post cystectomy, with ileal conduit in place. No pelvic mass evident. No ascites. Stable probable large Schmorl's node at the superior plate of L5. Impression: No definite acute abnormality seen. 4 mm nonobstructing left renal stone. 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 Status post cystectomy with ileal conduit. Reviewed, dictated and finalized at location . Impression: No definite acute abnormality seen. 4 mm nonobstructing left renal stone. 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 Status post cystectomy with ileal conduit.
--- NOTE | ~2023-03-09 | CT_ITS ---
Noncontrast CT scan of the cervical spine Technique: Multiple contiguous axial [address] images of the cervical spine were obtained and rec onstructed in 2D sagittal and coronal planes on the acquisition scanner. Dose reduction technique was used on this scan by utilizing automated exposure control, adjustment of the mA and/or kV according to patient size. The dose-length product (DLP) was 544.84 mGy-cm. Clinical History: Pain Findings: No fractures or dislocations. At C2-C3, there is mild degenerative disc narrowing with mild bilateral facet arthropathy. There is l eft neural foraminal narrowing. At C3-C4, there is bilateral facet arthropathy with severe bilateral neural foraminal narrowing. Ther e is central disc bulge with probable mild to possibly moderate central canal stenosis. At C4-C5, there is bilateral facet arthropathy, right worse than left, with right-sided neural forami nal narrowing. There is disc bulge with probable mild canal stenosis. At C5-C6, there is bilateral facet arthropathy with bilateral severe neural foraminal narrowing. Ther e is ossification of the posterior longitudinal ligament at the C5 level, contributing to probable mi ld central canal stenosis. At C6-C7, there is bilateral neural foraminal narrowing, with mild facet arthropathy. There is probab le disc ossify complex with possible minimal central canal stenosis. No prevertebral soft tissue swelling. Impression: No fracture or subluxation of the cervical spine. 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 Follow-up M R could be considered to better evaluate for discogenic disease and cord compression, if clinically i ndicated. Reviewed, dictated and finalized at location M. Impression: No fracture or subluxation of the cervical spine. Probable severe degenerative spondylosis, with multilevel neural foraminal narr owing, multilevel canal stenosis, probable ossification of the posterior longit udinal ligament at the C5 level. Follow-up MR could be considered to better nat luate for discogenic disease and cord compression, if clinically indicated.
[2023-03-09 23:02] VITALS: BP 147/76; PULSE 96; RESP 16; TEMP 36.4; O2SAT 100
--- NOTE | 2023-03-09 23:34 | ECG_ITS ---
Measurements Intervals [place] Rate: 97 P: 9 MN: 159 QRS: -64 QRSD: 121 T: 87 QT: 366 QTc: 465 Interpretive Statements SINUS RHYTHM WITH OCCASIONAL VENTRICULAR PREMATURE COMPLEXES LEFT ANTERIOR FASCICULAR BLOCK [QRS AXIS <= -45, QR IN I, RS IN II] POOR R-WAVE PROGRESSION ABNORMAL ECG COMPARED TO ECG 11/26/2022 17:26:35 HEART RATE REDUCED AND 1 PVC IS SEEN Electronically Signed On 03-10-2023 7:49:12 CDT by Anton De Leon M.D.
[2023-03-10] VITALS (13 sets, daily range): BP systolic 107–131; BP diastolic 53–79; PULSE 72–97; RESP 14–22; TEMP 36.8–37.3; O2SAT 95–99; BMI 21.9
--- NOTE | 2023-03-10 00:14 | ED.FALL ---
HPI - Fall General Chief Complaint: Fall <GUY Pelaez Last Filed: 03/10/23 03:36> Stated Complaint: weakness, fall <GUY Pelaez Last Filed: 03/10/23 03:36> Time Seen by Provider: 03/09/23 23:31 <GUY Pelaez Last Filed: 03/10/23 03:36> Source: patient and old records reviewed <GUY Pelaez Last Filed: 03/10/23 03:36> Mode of arrival: EMS <GUY Pelaez Last Filed: 03/10/23 03:36> Limitations: no limitations <GUY Pelaez Last Filed: 03/10/23 03:36> History of Present Illness HPI Narrative: Patient is a 78-year-old male, with a past medical history of previous bladder/prostate CA with urostomy, cirrhosis, DMII, CHF, who presents to the ED via EMS with report of a fall. Patient reports he was in the bathroom today when he lost his balance and fell. He is unable to tell me much further about the fall. Unable to tell me if he had any dizziness or lightheadedness. He thinks he fell onto his bottom. Unclear if he hit his head or not. No headache. C-collar placed by EMS. Patient reporting pain to his low back, which he reports has hurt for the last 20 years. Denies any abdominal pain, chest pain, shortness of breath, vision changes. Per family at bedside, patient has been increasingly altered and confused over the last few days. They did not witness the fall tonight. They report patient has been very weak over the last few weeks and unable to care for himself at home. He had previously been performing physical therapy, but has been too weak to even go to this. They also report patient has been refusing to eat over the last several weeks and has lost approximately 100 pounds since last May. <GUY Pelaez Last Filed: 03/10/23 03:36> Related Data Home Medications: Home Medications Medication Instructions Recorded Confirmed aspirin 81 mg tablet,delayed 81 mg PO DAILY 09/27/20 01/26/23 release vitamin A-vitamin C-vit E-min 1 tablet PO DAILY 10/05/22 01/26/23 tablet cefdinir 300 mg capsule 300 mg PO Q12H 01/26/23 01/26/23 <Katy Bose PA-C - Last Filed: 03/10/23 03:36> Allergies/Adverse Reactions: Allergies Allergy/AdvReac Type Severity Reaction Status Date / Time No Known Allergies Allergy Unknown Verified 02/17/23 15:33 <Katy Bose PA-C - Last Filed: 03/10/23 03:36> Review of Systems Review of Systems: CONSTITUTIONAL: Reports weight loss, decreased p.o. intake. Denies fever, chills, or sweats. EYES: Denies visual changes. CARDIOVASCULAR: Denies chest pain. RESPIRATORY: Denies dyspnea. GASTROINTESTINAL: Denies abdominal pain, nausea, vomiting, or diarrhea. GENITOURINARY: Denies dysuria or hematuria. MUSCULOSKELETAL: See HPI. NEUROLOGIC: See HPI. <Katy Bose PA-C - Last Filed: 03/10/23 03:36> All systems reviewed & are unremarkable except as noted in HPI and below <Katy Bose PA-C - Last Filed: 03/10/23 03:36> [facility] Past Medical History Medical History: Medical History Altered taste Benign essential hypertension Cardiomyopathy Echocardiogram 10/2020: EF 37-42%, biatrial and biventricular enlargement, mild pulmonary hypertension with RVSP of 37, left ventricular hypertrophy, moderate mitral valve regurgitation, trace aortic and tricuspid regurgitation Chronic HFrEF (heart failure with reduced ejection fraction) COVID-19 (05/2022) 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 History of aortic aneurysm Liver cirrhosis Malignant neoplasm of urinary bladder Type 2 diabetes mellitus without complication, without long-term current use of insulin Weight loss <Katy Bose PA-C - Last Filed: 03/10/23 03:36> Surgical History Surgical History: Surgical History
--- NOTE | 2023-03-10 00:16 | PC.NURSE ---
Pt's urostomy bag was replaced by this RN. Urine specimen was collected from the new bag.
[2023-03-10 00:17] LABS: Basophils Percent Auto 0.4 % (0.2-1.2); Hematocrit 40.6 % (42.0-52.0); Hemoglobin 12.5 g/dL (14.0-18.0); Immature Granulocyte Absolute 0.04 K/mm3 (0.00-0.031); Immature Granulocyte Percent A 0.9 % (0-0.5); Lymphocytes Absolute Auto 0.82 K/mm3 (0.9-3.2); Lymphocytes Percent Auto 17.9 % (18.3-44.2); Mean Corpuscular HGB Conc 30.8 g/dl (32-36); Mean Corpuscular Hemoglobin 26.7 pg (26-34); Mean Corpuscular Volume 86.8 fl (80-100); Mean Platelet Volume 8.8 fl (7.4-10.4); Monocytes Absolute Auto 0.4 K/mm3 (0.1-0.6); Neutrophils Absolute Auto 3.3 K/mm3 (1.3-6.7); Neutrophils Percent Auto 71.8 % (45.5-73.1); Platelet Count Result 244 k/mm3 (150-375); Red Blood Count 4.68 M/mm3 (4.6-6.20); Red Cell Distribution Width 15.9 % (11.5-14.5); White Blood Count 4.6 K/mm3 (4.5-10.0)
[2023-03-10 00:30] LABS: INR 1.1; Prothrombin Time 15.1 Seconds (11.1-14.7)
[2023-03-10 00:31] LABS: Partial Thromboplastin Time 34.7 SECONDS (22.3-36.8)
[2023-03-10 00:35] LABS: Alanine Aminotransferase 146 U/L (6-50); Albumin Level 3.8 g/dL (3.5-5.1); Alkaline Phosphatase 487 U/L (38-126); Anion Gap 8 mmol/L (8-16); Aspartate Amino Transferase 145 U/L (17-59); Bilirubin,Total 0.9 mg/dL (0.2-1.3); Blood Urea Nitrogen 36 mg/dL (9-20); Calcium 10.2 mg/dL (8.4-10.2); Carbon Dioxide 25 mmol/L (22-30); Chloride 102 mmol/L (98-107); Estimated CRCL calculation 45 ml/min; Estimated Glomerular Filt Rate 54; Glucose 148 mg/dL (65-110); Lactic Acid Reflex 1.9 mmol/L (0.7-2.0); Magnesium 2.5 mg/dL (1.6-2.3); Potassium 3.9 mmol/L (3.4-5.0); Sodium 135 mmol/L (137-145)
[2023-03-10 00:46] LABS: Troponin I 0.021 ng/mL (0.000-0.034)
[2023-03-10 00:48] LABS: Appearance Urine Turbid (Clear); Bacteria Urine None Seen /hpf; Bilirubin Urine Negative (Negative); Blood Urine 3+ (Negative); Budding Yeast Urine Present /hpf; Color Urine Dark Yellow (Yellow); Glucose Urine UA 3+ mg/dL (Negative); Ketones Urine Negative (Negative); Leukocyte Esterase Ur 1+ LEU/UL (Negative); Nitrate Urine Negative (Negative); Non Pathogenic Casts 0-2; Protein Urine 1+ mg/dL (Negative); RBC Urine >100 /hpf (0-2); Squamous Epithelial Cell Urine None seen /hpf (Few); Urobilinogen Urine 0.2 mg/dL (<2.0); WBC Urine 51-100 /hpf; pH Urine 5.5 (5.0-9.0)
[2023-03-10 00:49] LABS: Add Urine Microscopic? YES
[2023-03-10] MEDS: SODIUM CHLORIDE 0.9% IV 1,000 ML 999 ML IV CONT (01:12)
[2023-03-10] MEDS: SODIUM CHLORIDE 0.9% IV 1,000 ML 500 ML IV CONT (03:52)
[2023-03-10] MEDS: SODIUM CHLORIDE 0.9% IV 1,000 ML 125 ML IV CONT ×2 (08:09→18:19)
--- NOTE | 2023-03-10 09:12 | ADMGEN ---
This patient, Casey Orellana, was admitted to Medical Room 348-01. Patient/family oriented to hospital policies and general routines including ID bracelet, bed and alarms, visiting hours, pain management, procedures, bathroom and other care routines, personal items, smoking policy, room service/diet, and visiting hours. Information on how to activate the Rapid Response Team has been discussed. Patient/Family are encouraged to report perceived risks to care and to ask questions if they do not understand what they are told or what they should do.
[2023-03-10 12:40] LABS: Glucose Point of Care 121 mg/dl (65-105)
[2023-03-10] MEDS: METOPROLOL SUCCINATE EXT REL 25 MG TABCR PO (13:41)
[2023-03-10] MEDS: CLOPIDOGREL BISULFATE 75 MG TABLET PO (13:41)
[2023-03-10] MEDS: EMPAGLIFLOZIN 10 MG TABLET PO (13:41)
[2023-03-10] MEDS: ATORVASTATIN 40 MG TABLET PO (13:41)
[2023-03-10] MEDS: MIRTAZAPINE 15 MG TABLET PO (13:43)
[2023-03-10] MEDS: ACETAMINOPHEN 325 MG TABLET 650 MG PO (13:43)
[2023-03-10 13:44] LABS: Basophils Percent Auto 0.5 % (0.2-1.2); Hematocrit 38.8 % (42.0-52.0); Hemoglobin 11.7 g/dL (14.0-18.0); Immature Granulocyte Absolute 0.02 K/mm3 (0.00-0.031); Immature Granulocyte Percent A 0.5 % (0-0.5); Lymphocytes Absolute Auto 0.96 K/mm3 (0.9-3.2); Lymphocytes Percent Auto 21.9 % (18.3-44.2); Mean Corpuscular HGB Conc 30.2 g/dl (32-36); Mean Corpuscular Volume 89.6 fl (80-100); Monocytes Absolute Auto 0.5 K/mm3 (0.1-0.6); Neutrophils Absolute Auto 2.9 K/mm3 (1.3-6.7); Neutrophils Percent Auto 66.1 % (45.5-73.1); Platelet Count Result 193 k/mm3 (150-375); Red Blood Count 4.33 M/mm3 (4.6-6.20); Red Cell Distribution Width 15.9 % (11.5-14.5); White Blood Count 4.4 K/mm3 (4.5-10.0)
[2023-03-10 13:53] LABS: Anion Gap 9 mmol/L (8-16); Blood Urea Nitrogen 27 mg/dL (9-20); Calcium 9.2 mg/dL (8.4-10.2); Carbon Dioxide 23 mmol/L (22-30); Chloride 106 mmol/L (98-107); Estimated CRCL calculation 59 ml/min; Estimated Glomerular Filt Rate > 60; Glucose 139 mg/dL (65-110); Sodium 138 mmol/L (137-145)
--- NOTE | 2023-03-10 16:01 | PCPTNOTE ---
On 03/10/23, the student, ANT Johnson, provided care and completed [facility] documentation on this patient. I have reviewed the student's documentation and agree with the findings.
--- NOTE | 2023-03-10 16:48 | PM.IMHP ---
H&P: HPI History of Present Illness Date/Time: 03/10/23 1040 Chief Complaint: fall, altered mental status, weakness Narrative: patient is a 78-year-old male who presents to the emergency department earlier today with complaints of a ground level fall, generalized weakness and altered mental status. Patient has a past medical history significant for previous bladder/prostate cancer with urostomy, cirrhosis, DM type 2, CHF, unexplained weight loss. Per patient's family patient has been increasingly more confused over the last few days it has been very weak over the past few weeks and unable to care for himself at home. Patient had been receiving home physical therapy but has been too weak to even go to physical therapy. Family reports patient has been refusing to eat over the last several weeks and has lost approximately 100 lb since last May. CT of the brain and cervical spine are both negative for traumatic findings. CT abdomen and pelvis obtained showing no definite acute abnormality. 4 mm nonobstructing left renal stone. 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 Status post cystectomy with ileal conduit. Review of Systems Review of Systems: ROS unobtainable: Yes unobtainable due to mental status Constitutional: Comments: Oriented to person only PMFSH Past Medical History Medical History Altered taste Benign essential hypertension Cardiomyopathy Echocardiogram 10/2020: EF 37-42%, biatrial and biventricular enlargement, mild pulmonary hypertension with RVSP of 37, left ventricular hypertrophy, moderate mitral valve regurgitation, trace aortic and tricuspid regurgitation Chronic HFrEF (heart failure with reduced ejection fraction) COVID-19 (05/2022) 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 History of aortic aneurysm Liver cirrhosis Malignant neoplasm of urinary bladder Type 2 diabetes mellitus without complication, without long-term current use of insulin Weight loss Surgical History Surgical History History of implantable cardioverter-defibrillator (ICD) insertion History of percutaneous coronary intervention Family History Family History Mother Family history of type 2 diabetes mellitus Social History Social History (Reviewed 03/10/23 @ 16:54 by ARCHIE Major Social History: The patient lives with his of over 50 years. 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 He and his have 3 children. Code status: Full code Smoking status: Never smoker Second hand tobacco smoke exposure: Yes Alcohol intake: never Substance use: never Substance use type: does not use Lack of Transportation: No Lack of Food: Never True Current Housing: I Have Housing Concerned About Future Housing: No Difficulty Paying Gas/Electric Bills: No Difficulty Paying for Meds: No Currently Unemployed: No Education: High School Diploma/GED Difficulty w/ Childcare or Family Care: No Spiritual care concerns: No Meds Home Medications and Allergies Home Medications Medication Instructions Recorded Confirmed Type aspirin 81 mg tablet,delayed 81 mg PO DAILY 09/27/20 03/10/23 History release blood sugar diagnostic (Contour See Rx Instructions .Route 01/14/22 03/10/23 Rx Next Test Strips) .COMPLEX #200 strips lancets 21 gauge (Comfort EZ #200 ea 01/14/22 03/10/23 Rx Lancets) sitagliptin phosphate 50 mg tablet 50 mg PO DAILY #90 tabs 08/20/22 03/10/23 Rx (Januvia) clopidogrel 75 mg tablet 75 mg PO DAILY #90 tabs 01/19/23 03/10/23 Rx atorvastatin 40 mg tablet 40 mg PO DAILY #90 tabs 01/26/23 03/10/23 Rx cefdinir 300 mg capsule 300 mg PO Q12H 01/26/23 03/10/23 History empagliflozin 10 mg tablet 10 mg PO DAILY #90 tabs 01/26/23 03/10/23 Rx (Jardiance)
[2023-03-10 17:54] LABS: Glucose Point of Care 139 mg/dl (65-105)
[2023-03-10 20:58] LABS: Glucose Point of Care 174 mg/dl (65-105)
[2023-03-11] VITALS: PULSE 104
[2023-03-11 04:00] VITALS: PULSE 99
[2023-03-11 06:00] VITALS: BP 131/65; PULSE 105; RESP 18; TEMP 37.4; O2SAT 98
[2023-03-11 06:39] LABS: Basophils Percent Auto 0.2 % (0.2-1.2); Eosinophils Percent Auto 0.4 % (0-4.4); Hemoglobin 11.5 g/dL (14.0-18.0); Immature Granulocyte Absolute 0.02 K/mm3 (0.00-0.031); Immature Granulocyte Percent A 0.4 % (0-0.5); Lymphocytes Absolute Auto 0.95 K/mm3 (0.9-3.2); Lymphocytes Percent Auto 19.6 % (18.3-44.2); Mean Corpuscular HGB Conc 30.3 g/dl (32-36); Mean Corpuscular Hemoglobin 26.3 pg (26-34); Mean Corpuscular Volume 86.8 fl (80-100); Mean Platelet Volume 8.9 fl (7.4-10.4); Monocytes Absolute Auto 0.5 K/mm3 (0.1-0.6); Monocytes Percent Auto 9.5 % (2.6-8.5); Neutrophils Absolute Auto 3.4 K/mm3 (1.3-6.7); Neutrophils Percent Auto 69.9 % (45.5-73.1); Platelet Count Result 189 k/mm3 (150-375); Red Blood Count 4.38 M/mm3 (4.6-6.20); Red Cell Distribution Width 15.7 % (11.5-14.5); White Blood Count 4.9 K/mm3 (4.5-10.0)
[2023-03-11 06:46] LABS: Anion Gap 6 mmol/L (8-16); Blood Urea Nitrogen 21 mg/dL (9-20); Calcium 9.1 mg/dL (8.4-10.2); Carbon Dioxide 25 mmol/L (22-30); Chloride 106 mmol/L (98-107); Estimated CRCL calculation 59 ml/min; Estimated Glomerular Filt Rate > 60; Glucose 121 mg/dL (65-110); Potassium 4.4 mmol/L (3.4-5.0); Sodium 137 mmol/L (137-145)
[2023-03-11 08:05] VITALS: PULSE 108
[2023-03-11 08:19] VITALS: PULSE 102
[2023-03-11] MEDS: ASPIRIN 81 MG ENTERIC TABLET PO (08:19)
[2023-03-11] MEDS: METOPROLOL SUCCINATE EXT REL 25 MG TABCR PO (08:19)
[2023-03-11] MEDS: ATORVASTATIN 40 MG TABLET PO (08:19)
[2023-03-11] MEDS: CLOPIDOGREL BISULFATE 75 MG TABLET PO (08:19)
[2023-03-11] MEDS: EMPAGLIFLOZIN 10 MG TABLET PO (08:19)
[2023-03-11] MEDS: MULTIVITAMINS /C LUTEIN (CENTRUM SILVER) TABLET *BKC 1 TAB PO (08:19)
[2023-03-11] MEDS: MIRTAZAPINE 15 MG TABLET PO (08:20)
[2023-03-11] MEDS: ACETAMINOPHEN 325 MG TABLET 650 MG PO (08:25)
[2023-03-11 08:50] LABS: Glucose Point of Care 110 mg/dl (65-105)
--- NOTE | 2023-03-11 11:58 | PCOTNOTE ---
Attempted OT eval, patient refused to participate at this time. Will follow.
[2023-03-11 12:02] LABS: Glucose Point of Care 124 mg/dl (65-105)
[2023-03-11 12:04] VITALS: PULSE 94
--- NOTE | 2023-03-11 12:13 | PM.DS ---
DS: Admitting Diagnosis Discharge Date 03/11/23 Admitting Diagnosis Fall, weakness DS: Discharge Diagnosis Discharge Diagnosis (1) Acute UTI: Code(s): N39.0 - Urinary tract infection, site not specified Status: Suspected (2) AMS (altered mental status): Qualifiers: Altered mental status type: unspecified Qualified Code(s): R41.82 - Altered mental status, unspecified Code(s): R41.82 - Altered mental status, unspecified Status: Acute (3) KRYSTA (acute kidney injury): Code(s): N17.9 - Acute kidney failure, unspecified Status: Acute DS: Summary Hospital Course Hospital Course: This is a 72-year-old male that presented to the ED on 03/10/2023 due to a ground level fall, generalized weakness and altered mental status. He has a past medical history of bladder/prostate cancer with urostomy, cirrhosis, type 2 diabetes, CHF, and chronic back pain associated with unexplained weight loss. Patient recently discharged from the hospital in November due to UTI sepsis and was discharged home into home health. Patient is still receiving home health but then refused to work with therapy any longer and was not getting out of the house. Patient has had a loss of appetite and approximately 100 lb weight loss since May. head CT no acute intracranial hemorrhage, mass or acute infarct. CT cervical spine no acute fracture or subluxation. CT abdomen pelvis revealed No acute abnormality seen although 4 mm nonobstructing left renal stone that was there during his last hospitalization. , stable aneurysm of right internal iliac artery and post cystectomy with ideal conduit. During his last hospital visit patient advised that patient follow-up with oncologist due to concern of a new L5 lytic lesion. Is unclear if they have done so, although it is again highly recommended and discussed with both patient and family. Patient worked with PT in the hospital and they recommended the continuation of home health. Patient is eating and well drinking well. patient's urine was suspicious for UTI and he was originally started on Rocephin. Urine culture came back negative for acute infection and Rocephin was discontinued. Had long discussion with patient's daughter about his care and concern for possible malignancy. I answered all of her questions to the best my ability. Labs and vital signs are stable and he is medically clear for discharge. Time Spent with Patient Time attestation: Total time spent providing and/or coordinating discharge services: Exam Narrative: GENERAL: Comfortable, no acute distress HENMT: moist mucous membranes EYES: EOM intact b/l NECK: no lymphadenopathy RESPIRATORY: clear to auscultation CARDIO: RRR GI: soft, nontender, bowel sounds present SKIN: no rashes EXTREMITIES: no edema, redness or tenderness DS: Data Data Completed and Pending Labs on day of discharge: Labs from last 24 hours 03/11/23 03/11/23 03/11/23 12:00 08:41 06:28 WBC 4.9 RBC 4.38 L Hgb 11.5 L Hct 38.0 L MCV 86.8 MCH 26.3 MCHC 30.3 L RDW 15.7 H Plt Count 189 MPV 8.9 Immature Gran % (Auto) 0.4 Neut % (Auto) 69.9 Lymph % (Auto) 19.6 Mayes % (Auto) 9.5 H Eos % (Auto) 0.4 Baso % (Auto) 0.2 Lymph # (Auto) 0.95 Mayes # (Auto) 0.5 Eos # (Auto) 0.0 Baso # (Auto) 0.0 Abs Immat Gran (auto) 0.02 Absolute Neuts (auto) 3.4 Absolute Nucleated RBC 0.0 Nucleated RBC % 0.0 Sodium 137 Potassium 4.4 Chloride 106 Carbon Dioxide 25 Anion Gap 6 L BUN 21 H Creatinine 1.00 Estim Creat Clear Calc 59 Estimated GFR > 60 Glucose 121 H POC Capillary Glucose 124 H 110 H Calcium 9.1 03/10/23 03/10/23 03/10/23 20:48 17:40 13:20 WBC 4.4 L RBC 4.33 L Hgb 11.7 L Hct 38.8 L MCV 89.6 MCH 27.0 MCHC 30.2 L RDW 15.9 H Plt Count 193 MPV 9.0 Immature Gran % (Auto) 0.5 Neut % (Auto)
== END 2023-03-11 14:40 | disposition home or self-care (01) ==
LOC: ANHED 03-10 04:02 → ANH3MED 03-10 08:28
PROVIDERS: Nurse Practitioner Family; Physician Assistant; Admitting Provider Internal Medicine; Emergency Provider Emergency Medicine; PCP Family Medicine; Visit Provider Family Medicine
DX: N39.0 Urinary tract infection, site not specified (principal); R41.82 Altered mental status, unspecified; N17.9 Acute kidney failure, unspecified; R53.1 Weakness; W18.30XA Fall on same level, unspecified, initial encounter; Z96.0 Presence of urogenital implants; R43.9 Unspecified disturbances of smell and taste; I11.0 Hypertensive heart disease with heart failure; I50.22 Chronic systolic (congestive) heart failure; R63.0 Anorexia; Z86.16 Personal history of COVID-19; D72.829 Elevated white blood cell count, unspecified; I42.9 Cardiomyopathy, unspecified; M50.30 Other cervical disc degeneration, unspecified cervical region; M48.02 Spinal stenosis, cervical region; I25.10 Atherosclerotic heart disease of native coronary artery without angina pectoris; N20.0 Calculus of kidney; I72.3 Aneurysm of iliac artery; Z95.810 Presence of automatic (implantable) cardiac defibrillator; Z95.5 Presence of coronary angioplasty implant and graft; Z83.3 Family history of diabetes mellitus; R94.31 Abnormal electrocardiogram [ECG] [EKG]; R63.4 Abnormal weight loss; E11.9 Type 2 diabetes mellitus without complications; K74.60 Unspecified cirrhosis of liver; Z86.73 Personal history of transient ischemic attack (TIA), and cerebral infarction without residual deficits; Z85.51 Personal history of malignant neoplasm of bladder; Z68.21 Body mass index [BMI] 21.0-21.9, adult; Z79.82 Long term (current) use of aspirin; Z79.899 Other long term (current) drug therapy
CPT/HCPCS: 36415; 70450; 72125; 74177; 80048; 80053; 81001; 82948; 83605; 83735; 84484; 85025; 85610; 85730; 87040; 87086; 93005; 96361; 96365; 96376; 97161; 97165; 99285; A9270; G0378; J0696; J7030; Q9967

== ENCOUNTER 2023-03-12 13:34 | Inpatient (IN) | payer MEDICARE, OTHER, SELFPAY ==
[2023-03-12] VITALS (25 sets, daily range): BP systolic 93–132; BP diastolic 55–77; PULSE 80–112; RESP 17–29; TEMP 36.4–38.2; O2SAT 93–100; BMI 22.5
--- NOTE | ~2023-03-12 | XR_ITS ---
EXAMINATION: XR chest 2V DATE: 03/12/2023 15:06 INDICATION: Sepsis TECHNIQUE: AP and lateral views of the chest are obtained. COMPARISON: 11/27/2022 FINDINGS: The lungs are free of acute opacities. No pleural effusion or pneumothorax. The cardiomedia stinal silhouette is normal. There is moderate thoracic spondylosis. A dual-lead cardiac pacemaker of the left chest wall ends with leads in expected locations. IMPRESSION: 1. No acute cardiopulmonary abnormality. Reviewed, dictated and finalized at location F.
--- NOTE | ~2023-03-12 | CT_ITS ---
EXAMINATION: CTA chest PE protocol DATE: 03/12/2023 16:04 INDICATION: Weakness. Fever. Sepsis. Weight loss. TECHNIQUE: Computed tomography angiography (CTA) of the chest was performed with 100 mL Omnipaque-350 intravenous contrast timed to evaluate the pulmonary arteries. Coronal maximum intensity projection 3D-reconstructions were created by the technologist. Automated exposure control and iterative reconst ruction technique were employed. The dose-length product was 392.63 mGy-cm. COMPARISON: Chest CT 11/29/2022 FINDINGS: The lungs demonstrate mild atelectasis. Calcified left hilar and mediastinal lymph nodes ar e consistent with old granulomatous disease. No pleural effusion. There is left ventricular enlargeme nt of the heart. There are coronary artery calcifications. No pericardial effusion. There is a left c hest wall pacer with leads in the right atrium and right ventricle. There is no pulmonary embolus. Ao rtic atherosclerosis is noted. 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 There i s a 2.5 cm nodule in right thyroid lobe. There are bridging endplate osteophytes at multiple levels i n the spine, consistent with diffuse idiopathic skeletal hyperostosis (DISH). IMPRESSION: 1. No pulmonary embolus. 2. Left ventricular enlargement of the heart. 3. Right thyroid nodule. Consider ultrasound-guided fine-needle aspiration. Reviewed, dictated and finalized at location B.
--- NOTE | ~2023-03-12 | US_ITS ---
EXAMINATION: US abdomen limited DATE: 03/12/2023 19:35 INDICATION: Elevated liver enzymes TECHNIQUE: Multiple grayscale and Doppler ultrasound images of the abdomen were obtained. COMPARISON: CT, 03/10/2023 FINDINGS: Bowel gas obscures visualization of the pancreas. The visualized portions of the pancreas a re unremarkable. The liver is normal with normal echogenicity and echotexture. No surface nodularity. Normal hepatopetal flow in the main portal vein. Sludge is present in the gallbladder. No gallbladde r wall thickening or pericholecystic fluid. The normal common bile duct measures 4 mm. There was no s onographic Ware sign. There is a 4 mm stone in the right renal pelvis with mild hydronephrosis of t he partially imaged right kidney. IMPRESSION: 1. Gallbladder sludge. 2. 4 mm stone in the right renal pelvis with mild right hydronephrosis. Reviewed, dictated and finalized at location F.
--- NOTE | 2023-03-12 13:43 | ECG_ITS ---
Measurements Intervals [place] Rate: 109 P: 53 [place]: 159 QRS: -68 QRSD: 122 T: 90 QT: 336 QTc: 453 Interpretive Statements SINUS TACHYCARDIA WITH FREQUENT VENTRICULAR PREMATURE COMPLEXES POOR R-WAVE PROGRESSION, CANNOT RULE OUT OLD ANTERIOR OK POSSIBLE OLD INFERIOR MYOCARDIAL INFARCTION COMPARED TO ECG 03/09/2023 23:48:49 SINUS TACHYCARDIA NOW PRESENT Electronically Signed On 03-13-2023 8:47:14 CDT by Ofelia Danielle M.D.
[2023-03-12 13:58] LABS: Basophils Percent Auto 0.2 % (0.2-1.2); Hematocrit 33.7 % (42.0-52.0); Hemoglobin 10.5 g/dL (14.0-18.0); Immature Granulocyte Absolute 0.02 K/mm3 (0.00-0.031); Immature Granulocyte Percent A 0.5 % (0-0.5); Lymphocytes Absolute Auto 0.66 K/mm3 (0.9-3.2); Lymphocytes Percent Auto 15.1 % (18.3-44.2); Mean Corpuscular HGB Conc 31.2 g/dl (32-36); Mean Corpuscular Hemoglobin 26.5 pg (26-34); Mean Corpuscular Volume 85.1 fl (80-100); Mean Platelet Volume 9.2 fl (7.4-10.4); Monocytes Absolute Auto 0.4 K/mm3 (0.1-0.6); Monocytes Percent Auto 9.6 % (2.6-8.5); Neutrophils Absolute Auto 3.3 K/mm3 (1.3-6.7); Neutrophils Percent Auto 74.6 % (45.5-73.1); Platelet Count Result 155 k/mm3 (150-375); Red Blood Count 3.96 M/mm3 (4.6-6.20); Red Cell Distribution Width 15.8 % (11.5-14.5); White Blood Count 4.4 K/mm3 (4.5-10.0)
[2023-03-12 14:09] LABS: Alanine Aminotransferase 130 U/L (6-50); Albumin Level 3.3 g/dL (3.5-5.1); Alkaline Phosphatase 430 U/L (38-126); Anion Gap 6 mmol/L (8-16); Aspartate Amino Transferase 145 U/L (17-59); Bilirubin,Total 0.9 mg/dL (0.2-1.3); Blood Urea Nitrogen 21 mg/dL (9-20); Calcium 8.8 mg/dL (8.4-10.2); Carbon Dioxide 25 mmol/L (22-30); Chloride 105 mmol/L (98-107); Estimated CRCL calculation 56 ml/min; Estimated Glomerular Filt Rate > 60; Glucose 190 mg/dL (65-110); Potassium 3.9 mmol/L (3.4-5.0); Sodium 136 mmol/L (137-145)
[2023-03-12 14:16] LABS: Appearance Urine Cloudy (Clear); Bacteria Urine Rare /hpf; Bilirubin Urine Negative (Negative); Blood Urine 1+ (Negative); Budding Yeast Urine Present /hpf; Color Urine Yellow (Yellow); Glucose Urine UA 3+ mg/dL (Negative); Hyaline Casts Urine Present /lpf; Ketones Urine Negative (Negative); Leukocyte Esterase Ur 1+ LEU/UL (Negative); Need Manual Microscopic Reviewed; Nitrate Urine Negative (Negative); Non Pathogenic Casts 0-2; Protein Urine 1+ mg/dL (Negative); RBC Urine 21-50 /hpf (0-2); Specific Grav Ur 1.021 (1.001-1.035); Squamous Epithelial Cell Urine None seen /hpf (Few); Urobilinogen Urine 0.2 mg/dL (<2.0); WBC Clumps Urine Present /HPF; WBC Urine 51-100 /hpf; pH Urine 5.5 (5.0-9.0)
[2023-03-12 14:18] LABS: Add Urine Microscopic? YES
--- NOTE | 2023-03-12 14:39 | ED.GENADULT ---
HPI - General Adult General Chief complaint: Weakness Stated complaint: increased weakness, UTI Time Seen by Provider: 03/12/23 14:07 History of Present Illness HPI narrative: Patient is a 78-year-old male with history of prior bladder cancer status post urostomy placement a couple of years ago here with confusion and fever. notes that he was discharged from hospital yesterday where he was being treated for UTI. He went home feeling normal and then around 3:00 a.m. this morning he began nonsensical speaking and much weaker. tried to get him out of bed but was unable to due to his weakness. Patient did not fall to the ground when attempting to get up. Patient denies any pain. No cough, congestion. Related Data Home Medications Medication Instructions Recorded Confirmed aspirin 81 mg tablet,delayed 81 mg PO DAILY 09/27/20 03/10/23 release cefdinir 300 mg capsule 300 mg PO Q12H 01/26/23 03/10/23 metoprolol succinate 25 mg 25 mg PO DAILY 03/10/23 03/10/23 tablet,extended release 24 hr multivit with minerals-iron 18 1 tablet PO DAILY 03/10/23 03/10/23 mg-folic ac 400 mcg-vit K 25 mcg tablet (Adults Multivitamin) Allergies Allergy/AdvReac Type Severity Reaction Status Date / Time No Known Allergies Allergy Unknown Verified 03/10/23 09:14 Review of Systems Review of Systems: CONSTITUTIONAL: fever, chills EYES: Denies visual changes, redness, or discharge. ENT: Denies rhinorrhea, congestion, sore throat, or otalgia. CARDIOVASCULAR: Denies chest pain, palpitations, or edema. RESPIRATORY: Denies cough or dyspnea. GASTROINTESTINAL: Denies abdominal pain, nausea, vomiting, or diarrhea. GENITOURINARY: Denies dysuria or hematuria. SKIN: Denies rash or itching. MUSCULOSKELETAL: Denies back pain, joint pain, or myalgia. NEUROLOGIC: Denies headache, numbness. Generalized weakness. PSYCHIATRIC: Denies anxiety or depression. [facility] Past Medical History Medical History (Updated 03/12/23 @ 17:22 by Irasema Ni MD) Altered taste Benign essential hypertension Cardiomyopathy Echocardiogram 10/2020: EF 37-42%, biatrial and biventricular enlargement, mild pulmonary hypertension with RVSP of 37, left ventricular hypertrophy, moderate mitral valve regurgitation, trace aortic and tricuspid regurgitation Chronic HFrEF (heart failure with reduced ejection fraction) COVID-19 (05/2022) 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 History of aortic aneurysm Liver cirrhosis Malignant neoplasm of urinary bladder Type 2 diabetes mellitus without complication, without long-term current use of insulin Weight loss Surgical History Surgical History (Updated 03/12/23 @ 19:32 by Courtney Franklin NP) H/O total cystectomy History of implantable cardioverter-defibrillator (ICD) insertion History of percutaneous coronary intervention Family History Family History Mother Family history of type 2 diabetes mellitus Social History Social History Social History: The patient lives with his of over 50 years. 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 He and his have 3 children. Code status: Full code Smoking status: Never smoker Second hand tobacco smoke exposure: Yes Alcohol intake: never Substance use: never Substance use type: does not use Lack of Transportation: No Lack of Food: Never True Current Housing: I Have Housing Concerned About Future Housing: No Difficulty Paying Gas/Electric Bills: No Difficulty Paying for Meds: No Currently Unemployed: No Education: High School Diploma/GED Difficulty w/ Childcare or Family Care: No Spiritual care concerns: No Exam Narrative: GENERAL: Chronically ill-appearing, in no acute distress. HEAD: Normocephalic, atraumatic. EYES: PERRLA and EOMI. ENT: Nares clear, no rhinorrhea or epistaxis. Mucous m
[2023-03-12] MEDS: ACETAMINOPHEN 325 MG TABLET 650 MG PO (15:49)
[2023-03-12 16:12] LABS: INR 1.4; Prothrombin Time 17.7 Seconds (11.1-14.7)
[2023-03-12 16:13] LABS: Partial Thromboplastin Time 34.6 SECONDS (22.3-36.8)
[2023-03-12 16:14] LABS: Lactic Acid Reflex 2.3 mmol/L (0.7-2.0)
[2023-03-12 16:24] LABS: CRP 8.2 mg/dL (<1.0)
[2023-03-12] MEDS: SODIUM CHLORIDE 0.9% IV 1,000 ML 500 ML IV CONT (16:57)
[2023-03-12 17:17] LABS: Lipase 161 U/L (23-300)
[2023-03-12 18:57] LABS: Reflex Lactic Acid Yes or No Add Lactic
--- NOTE | 2023-03-12 19:17 | PM.IMHP ---
H&P: HPI History of Present Illness Date/Time: 03/12/23 19:17 Chief Complaint: Weakness Narrative: This is a 78-year-old male patient who was just discharged yesterday. The patient is been having falls and is weak. The patient was treated for UTI. He has a history of having bladder/prostate cancer with urostomy and cirrhosis as well as diabetes type 2 and congestive heart failure. The patient has been in and out of the hospital quite frequently. The patient has been advised to follow-up with his new L5 lytic lesion. Patient's urine had been suspicious for UTI and he was initially on Rocephin. However his urine culture came back negative. And the Rocephin was discontinued. There was some concern about the possibility of malignancy. Today the patient was so weak he was not able to get out of bed. He did not fall this time. His white count is normal. H&H is 10.5 and 33.7. Which is slightly lower than last value. His blood sugar was noted to 190. Lactic acid was 2.3 now 1.1. AST is 145 alkaline phosphatase 430. ALT 130. CRP is 8.2. His urine once again appears to be infectious. His temperature initially was 38.2? C. the patient was once again started on Rocephin, IV fluids and Tylenol. The patient is being admitted to observation status on the date of service 03/12/2023. Review of Systems Review of Systems: All systems reviewed & are unremarkable except as noted in HPI and below Constitutional: Constitutional: Reports as per HPI and Reports no additional constitutional complaints Eyes: Eyes: Reports as per HPI and Reports no additional eye complaints ENT: Reports system reviewed and no additional complaints, except as documented and Reports Normal hearing present Cardiovascular: Cardiovascular: Reports no additional cardiovascular complaints Respiratory: Respiratory: Reports no additional respiratory complaints and Reports no additional respiratory complaints Gastrointestinal: Gastrointestinal: Reports as per HPI and Reports no additional gastrointestinal complaints Musculoskeletal: Musculoskeletal: Reports no additional musculoskeletal complaints Integumentary/Breasts: Skin/Breast: Reports system reviewed and no additional complaints, except as docu and Reports as per HPI Neurologic: Reports system reviewed and no additional complaints, except as documented, Reports as per HPI and Reports Normal hearing present Psychiatric: Psychiatric: Reports no additional psychiatric complaints and Reports as per HPI Endocrine: Endocrine: Reports no additional endocrine complaints Hematologic/Lymphatic: Hematologic/Lymphatic: Reports no additional hematologic/lymphatic complaints Allergic/Immunologic: Allergic/Immunologic: Reports no additional allergic/immunologic complaints [facility] Past Medical History Medical History Altered taste Benign essential hypertension Cardiomyopathy Echocardiogram 10/2020: EF 37-42%, biatrial and biventricular enlargement, mild pulmonary hypertension with RVSP of 37, left ventricular hypertrophy, moderate mitral valve regurgitation, trace aortic and tricuspid regurgitation Chronic HFrEF (heart failure with reduced ejection fraction) COVID-19 (05/2022) 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 History of aortic aneurysm Liver cirrhosis Malignant neoplasm of urinary bladder Type 2 diabetes mellitus without complication, without long-term current use of insulin Weight loss Surgical History Surgical History (Updated 03/12/23 @ 19:32 by Courtney Franklin NP) H/O total cystectomy History of implantable cardioverter-defibrillator (ICD) insertion History of percutaneous coronary intervention Family History Family History Mother Family history of type 2 diabetes mellitus Social History Social History Social History: The patient
[2023-03-12 19:27] LABS: Lactic Acid 1.1 mmol/L (0.7-2.0)
--- NOTE | 2023-03-12 20:53 | PC.NURSE ---
This patient, Casey Orellana, was admitted to Medical Room 243-01. Patient/family oriented to hospital policies and general routines including ID bracelet, bed and alarms, visiting hours, pain management, procedures, bathroom and other care routines, personal items, smoking policy, room service/diet, and visiting hours. Information on how to activate the Rapid Response Team has been discussed. Patient/Family are encouraged to report perceived risks to care and to ask questions if they do not understand what they are told or what they should do.
[2023-03-13] VITALS (10 sets, daily range): BP systolic 105–108; BP diastolic 56–66; PULSE 79–106; RESP 17–22; TEMP 36.1–36.7; O2SAT 98–100
[2023-03-13] MEDS: ACETAMINOPHEN 325 MG TABLET 650 MG PO (02:16)
[2023-03-13 06:22] LABS: Eosinophils Percent Auto 0.7 % (0-4.4); Hematocrit 36.3 % (42.0-52.0); Hemoglobin 11.1 g/dL (14.0-18.0); Immature Granulocyte Absolute 0.02 K/mm3 (0.00-0.031); Immature Granulocyte Percent A 0.7 % (0-0.5); Lymphocytes Absolute Auto 0.42 K/mm3 (0.9-3.2); Lymphocytes Percent Auto 13.8 % (18.3-44.2); Mean Corpuscular HGB Conc 30.6 g/dl (32-36); Mean Corpuscular Hemoglobin 26.1 pg (26-34); Mean Corpuscular Volume 85.4 fl (80-100); Mean Platelet Volume 9.2 fl (7.4-10.4); Monocytes Absolute Auto 0.2 K/mm3 (0.1-0.6); Monocytes Percent Auto 6.9 % (2.6-8.5); Neutrophils Absolute Auto 2.4 K/mm3 (1.3-6.7); Neutrophils Percent Auto 77.9 % (45.5-73.1); Platelet Count Result 160 k/mm3 (150-375); Red Blood Count 4.25 M/mm3 (4.6-6.20); Red Cell Distribution Width 15.9 % (11.5-14.5)
[2023-03-13 06:35] LABS: Lactic Acid Reflex 1.1 mmol/L (0.7-2.0)
[2023-03-13 06:37] LABS: Alanine Aminotransferase 115 U/L (6-50); Albumin Level 3.2 g/dL (3.5-5.1); Alkaline Phosphatase 372 U/L (38-126); Anion Gap 7 mmol/L (8-16); Aspartate Amino Transferase 107 U/L (17-59); Bilirubin,Total 0.8 mg/dL (0.2-1.3); Blood Urea Nitrogen 22 mg/dL (9-20); Calcium 9.1 mg/dL (8.4-10.2); Carbon Dioxide 26 mmol/L (22-30); Chloride 106 mmol/L (98-107); Estimated CRCL calculation 59 ml/min; Estimated Glomerular Filt Rate > 60; Glucose 107 mg/dL (65-110); Magnesium 2.3 mg/dL (1.6-2.3); Potassium 4.1 mmol/L (3.4-5.0); Sodium 139 mmol/L (137-145)
--- NOTE | 2023-03-13 07:19 | PM.IMPN ---
Progress Note: A&P Assessment and Plan (1) Acute UTI: Code(s): N39.0 - Urinary tract infection, site not specified Status: Acute Assessment and Plan: Patient has a history of multiple UTI infections. During his last visit his urine culture came back normal and antibiotics were discontinued. He is on chronic antibiotic therapy cefdinir 300 mg twice daily for UTI prevention. Presented back to the ED due to progressive weakness. Urine appears infected. Has history of urostomy due to bladder cancer. Once again the patient was started on Rocephin. Blood and urine cultures are pending. Adjust antibiotics to culture results. (2) Adult failure to thrive: Code(s): R62.7 - Adult failure to thrive Status: Acute Assessment and Plan: The patient is a full code. marketing communications coordinator has been consulted for possible placement. The patient was recently evaluated by PT OT. At that time patient refused home health and preferred to get therapy as an outpatient. At this time I believe be better off if patient be evaluated for SNF. dietitian consult He does have history of an L5 lytic lesion with elevated alpha and gamma light chains with associated weight loss and back pain. Patient has not been worked up for multiple myeloma. He also has a history of Akhil thyroid nodule that has not been biopsied. (3) Transaminitis: Code(s): R74.01 - Elevation of levels of liver transaminase levels Status: Acute Assessment and Plan: Gallbladder sludge. 2. 4 mm stone in the right renal pelvis with mild right hydronephrosis. Hepatitis panel negative Hold Statin (4) Type 2 diabetes mellitus without complication, without long-term current use of insulin: Code(s): E11.9 - Type 2 diabetes mellitus without complications Status: Chronic Assessment and Plan: Accu-Cheks AC and HS with sliding scale insulin. Continue home medication. Jardiance and Januvia (5) Other and unspecified hyperlipidemia: Code(s): E78.5 - Hyperlipidemia, unspecified Status: Acute Assessment and Plan: Holding statin at this time due to elevated liver enzymes. (6) Essential (primary) hypertension: Onset Date: 04/04/18 Code(s): I10 - Essential (primary) hypertension Status: Chronic Assessment and Plan: Continue with metoprolol (7) Chronic HFrEF (heart failure with reduced ejection fraction): Code(s): I50.22 - Chronic systolic (congestive) heart failure Status: Acute Assessment and Plan: Continue with metoprolol echo from 11/30/2022 1. Left ventricular dilation with severe global systolic hypokinesis/low ejection fraction. ? 2. Left atrial enlargement. ? 3. Very small amount of mitral valve regurgitation due to annular enlargement. ? 4. Presence of pacemaker/ICD lead noted. Plan Patient does have a thyroid nodule and has received ultrasound at [facility]. He has not undergone thyroid biopsy. Patient's daughter has records of this and it was put with patient's paper chart. Subjective Date/time seen: 03/13/23 07:19 Interval history: Patient recently admitted here into the hospital. Patient was thought to have UTI but urine culture came back normal. He has been progressively weak. When I discussed this with patient's daughter during last visit I advised in follow-up with lytic lesions on L5 and possible workup for multiple myeloma. He also has a history of a thyroid nodule that has not been biopsied yet either. It is possible that patient is declining and may need placement and will be unable to return home. Had another long discussion with patient's . Patient is declining and we discussed failure to thrive. Patient did verbalize that he was not interested in any cancer treatment. Discussed with the daughter that if they are not looking to pursue treatment of anything then
[2023-03-13 07:38] LABS: Hepatitis B Surface Antigen Negative (Negative)
[2023-03-13 07:44] LABS: HAV RESULT Negative (Negative); Hepatitis B Core IgM Result Negative (Negative)
[2023-03-13 07:56] LABS: Hepatitis C Virus Antibody Negative (Negative)
[2023-03-13 08:40] LABS: Glucose Point of Care 93 mg/dl (65-105)
[2023-03-13] MEDS: ASPIRIN 81 MG ENTERIC TABLET PO (09:04)
[2023-03-13] MEDS: CLOPIDOGREL BISULFATE 75 MG TABLET PO (09:18)
[2023-03-13] MEDS: MULTIVITAMINS /C LUTEIN (CENTRUM SILVER) TABLET *BKC 1 TAB PO (09:18)
[2023-03-13] MEDS: MIRTAZAPINE 15 MG TABLET PO (09:18)
[2023-03-13] MEDS: EMPAGLIFLOZIN 10 MG TABLET PO (09:18)
[2023-03-13] MEDS: METOPROLOL SUCCINATE EXT REL 25 MG TABCR PO (09:18)
[2023-03-13 12:03] LABS: Glucose Point of Care 129 mg/dl (65-105)
[2023-03-13] MEDS: HYDROcodone/acetaminophen (*CRX) 5-325 MG TABLET 1 TAB PO (13:04)
[2023-03-13 17:14] LABS: Glucose Point of Care 117 mg/dl (65-105)
[2023-03-13] MEDS: HYDROmorphone HCL INJ (*CRX) 1 MG/ML SYR 0.5 MG IV PUSH (17:36)
[2023-03-13 21:56] LABS: Glucose Point of Care 110 mg/dl (65-105)
[2023-03-14] VITALS (10 sets, daily range): BP systolic 98–125; BP diastolic 55–64; PULSE 86–106; RESP 14–18; TEMP 36.6–37.3; O2SAT 95–98
[2023-03-14 05:53] LABS: Basophils Percent Auto 0.7 % (0.2-1.2); Eosinophils Percent Auto 0.3 % (0-4.4); Hematocrit 37.2 % (42.0-52.0); Hemoglobin 10.8 g/dL (14.0-18.0); Immature Granulocyte Absolute 0.01 K/mm3 (0.00-0.031); Immature Granulocyte Percent A 0.3 % (0-0.5); Lymphocytes Absolute Auto 0.69 K/mm3 (0.9-3.2); Lymphocytes Percent Auto 22.9 % (18.3-44.2); Mean Corpuscular Hemoglobin 26.5 pg (26-34); Mean Corpuscular Volume 91.4 fl (80-100); Mean Platelet Volume 9.3 fl (7.4-10.4); Monocytes Absolute Auto 0.2 K/mm3 (0.1-0.6); Monocytes Percent Auto 6.6 % (2.6-8.5); Neutrophils Absolute Auto 2.1 K/mm3 (1.3-6.7); Neutrophils Percent Auto 69.2 % (45.5-73.1); Platelet Count Result 139 k/mm3 (150-375); Red Blood Count 4.07 M/mm3 (4.6-6.20); Red Cell Distribution Width 15.9 % (11.5-14.5)
[2023-03-14 06:01] LABS: Alanine Aminotransferase 84 U/L (6-50); Albumin Level 2.8 g/dL (3.5-5.1); Alkaline Phosphatase 321 U/L (38-126); Anion Gap 2 mmol/L (8-16); Aspartate Amino Transferase 92 U/L (17-59); Bilirubin,Total 0.8 mg/dL (0.2-1.3); Blood Urea Nitrogen 24 mg/dL (9-20); Calcium 8.7 mg/dL (8.4-10.2); Carbon Dioxide 26 mmol/L (22-30); Chloride 104 mmol/L (98-107); Estimated CRCL calculation 54 ml/min; Estimated Glomerular Filt Rate > 60; Glucose 101 mg/dL (65-110); Potassium 3.7 mmol/L (3.4-5.0); Sodium 132 mmol/L (137-145)
[2023-03-14 06:55] LABS: Burr Cells 1+ (NORMAL); Platelet Estimate Adequate (Adequate)
[2023-03-14 06:56] LABS: Ovalocytes 1+ (NORMAL); Schistocytes None Seen (NORMAL)
[2023-03-14] MEDS: MIRTAZAPINE 15 MG TABLET PO (09:09)
[2023-03-14] MEDS: MULTIVITAMINS /C LUTEIN (CENTRUM SILVER) TABLET *BKC 1 TAB PO (09:09)
[2023-03-14] MEDS: CLOPIDOGREL BISULFATE 75 MG TABLET PO (09:09)
[2023-03-14] MEDS: EMPAGLIFLOZIN 10 MG TABLET PO (09:09)
[2023-03-14] MEDS: ASPIRIN 81 MG ENTERIC TABLET PO (09:09)
[2023-03-14] MEDS: METOPROLOL SUCCINATE EXT REL 25 MG TABCR PO (09:09)
[2023-03-14 09:14] LABS: Glucose Point of Care 92 mg/dl (65-105)
[2023-03-14] MEDS: HYDROcodone/acetaminophen (*CRX) 5-325 MG TABLET 1 TAB PO (11:27)
--- NOTE | 2023-03-14 11:30 | PM.IMPN ---
Progress Note: A&P Assessment and Plan (1) Acute UTI: Code(s): N39.0 - Urinary tract infection, site not specified Status: Acute Assessment and Plan: Patient has a history of multiple UTI infections. During his last visit his urine culture came back normal and antibiotics were discontinued. He is on chronic antibiotic therapy cefdinir 300 mg twice daily for UTI prevention. Presented back to the ED due to progressive weakness. Urine appears infected. Has history of urostomy due to bladder cancer. Urine culture negative for acute infection. Rocephin discontinued. Blood cultures pending (2) Adult failure to thrive: Code(s): R62.7 - Adult failure to thrive Status: Acute Assessment and Plan: Family has transition patient to DNR. Care coordination consultative id for hospice. He does have history of an L5 lytic lesion with elevated alpha and gamma light chains with associated weight loss and back pain. Patient has not been worked up for multiple myeloma. He also has a history of Akhil thyroid nodule that has not been biopsied. (3) Transaminitis: Code(s): R74.01 - Elevation of levels of liver transaminase levels Status: Acute Assessment and Plan: Gallbladder sludge. 2. 4 mm stone in the right renal pelvis with mild right hydronephrosis. Hepatitis panel negative Hold Statin (4) Type 2 diabetes mellitus without complication, without long-term current use of insulin: Code(s): E11.9 - Type 2 diabetes mellitus without complications Status: Chronic Assessment and Plan: Accu-Cheks AC and HS with sliding scale insulin. Continue home medication. Jardiance and Januvia (5) Other and unspecified hyperlipidemia: Code(s): E78.5 - Hyperlipidemia, unspecified Status: Acute Assessment and Plan: Holding statin at this time due to elevated liver enzymes. (6) Essential (primary) hypertension: Onset Date: 04/04/18 Code(s): I10 - Essential (primary) hypertension Status: Chronic Assessment and Plan: Continue with metoprolol (7) Chronic HFrEF (heart failure with reduced ejection fraction): Code(s): I50.22 - Chronic systolic (congestive) heart failure Status: Acute Assessment and Plan: Continue with metoprolol echo from 11/30/2022 1. Left ventricular dilation with severe global systolic hypokinesis/low ejection fraction. ? 2. Left atrial enlargement. ? 3. Very small amount of mitral valve regurgitation due to annular enlargement. ? 4. Presence of pacemaker/ICD lead noted. Plan Patient does have a thyroid nodule and has received ultrasound at [facility]. He has not undergone thyroid biopsy. Patient's daughter has records of this and it was put with patient's paper chart. Subjective Date/time seen: 03/14/23 11:30 Interval history: Patient comfortable today. Patient is very confused. He did get the year right but was not sure where he was, who the president was. Patient thought that he was at a birthday libertarian. He states that he has pain all over his body. Discussed with patient's power attorney at law in depth of what her goals and expectations were for patient's recovery. After long talk they decided that it would be best to set up a hospice meeting. I have consult to care coordination for this. 14:52 -- after discussing with the family they have decided to change patient's code status to DNR. Care coordination is contacting [facility] to set appointment for hospice consultation. Family would like to transition patient over to comfort measures in the meantime. Exam Narrative: GENERAL: uncomfortable, no acute distress, cachectic HENMT: moist mucous membranes EYES: EOM intact b/l NECK: no lymphadenopathy RESPIRATORY: clear to auscultation CARDIO: RRR GI: soft, nontender, bowel sounds present, urostomy in place SKIN: no rashes EXTRE
[2023-03-14 12:05] LABS: Glucose Point of Care 186 mg/dl (65-105)
[2023-03-14] MEDS: SCOPOLAMINE 1.5 MG PATCH TRANSDERM (15:31)
[2023-03-14] MEDS: MORPHINE SULFATE (*CRX) 2 MG/ML INJ IV PUSH (15:32)
[2023-03-14 16:59] LABS: Glucose Point of Care 147 mg/dl (65-105)
[2023-03-14] MEDS: MORPHINE SULFATE (*CRX) 15 MG TABCR PO (20:51)
[2023-03-15] VITALS: PULSE 90
[2023-03-15 04:00] VITALS: PULSE 87
[2023-03-15 04:24] VITALS: BP 116/58; PULSE 88; RESP 16; TEMP 36.9; O2SAT 92
[2023-03-15 05:52] LABS: Basophils Percent Auto 0.3 % (0.2-1.2); Eosinophils Percent Auto 0.6 % (0-4.4); Hematocrit 34.6 % (42.0-52.0); Hemoglobin 10.9 g/dL (14.0-18.0); Immature Granulocyte Absolute 0.02 K/mm3 (0.00-0.031); Immature Granulocyte Percent A 0.6 % (0-0.5); Lymphocytes Absolute Auto 0.77 K/mm3 (0.9-3.2); Lymphocytes Percent Auto 24.8 % (18.3-44.2); Mean Corpuscular HGB Conc 31.5 g/dl (32-36); Mean Corpuscular Hemoglobin 26.8 pg (26-34); Mean Platelet Volume 8.9 fl (7.4-10.4); Monocytes Absolute Auto 0.2 K/mm3 (0.1-0.6); Monocytes Percent Auto 7.1 % (2.6-8.5); Neutrophils Absolute Auto 2.1 K/mm3 (1.3-6.7); Neutrophils Percent Auto 66.6 % (45.5-73.1); Platelet Count Result 121 k/mm3 (150-375); Red Blood Count 4.07 M/mm3 (4.6-6.20); Red Cell Distribution Width 15.7 % (11.5-14.5); White Blood Count 3.1 K/mm3 (4.5-10.0)
[2023-03-15 06:01] LABS: Alanine Aminotransferase 88 U/L (6-50); Albumin Level 2.8 g/dL (3.5-5.1); Alkaline Phosphatase 336 U/L (38-126); Anion Gap 1 mmol/L (8-16); Aspartate Amino Transferase 119 U/L (17-59); Bilirubin,Total 0.8 mg/dL (0.2-1.3); Blood Urea Nitrogen 22 mg/dL (9-20); Calcium 8.7 mg/dL (8.4-10.2); Carbon Dioxide 27 mmol/L (22-30); Chloride 103 mmol/L (98-107); Estimated CRCL calculation 54 ml/min; Estimated Glomerular Filt Rate > 60; Glucose 111 mg/dL (65-110); Potassium 3.7 mmol/L (3.4-5.0); Sodium 131 mmol/L (137-145)
[2023-03-15 07:55] LABS: Glucose Point of Care 119 mg/dl (65-105)
[2023-03-15] MEDS: MORPHINE SULFATE (*CRX) 15 MG TABCR PO ×2 (09:03→20:50)
--- NOTE | 2023-03-15 10:17 | PCWOUND ---
Spoke with nursing staff. Patient is comfort care at this time, when patient is discharged to facility will transition to hospice care. Wound care will not follow at this time. Comfort dressings to be used as needed per patient and family request.
--- NOTE | 2023-03-15 10:33 | PCPTNOTE ---
Pt currently on bedrest/comfort measures. Hospitalist OK DC therapy orders.
--- NOTE | 2023-03-15 10:36 | PCOTNOTE ---
Cancelation of OT evaluation orders, as pt. transitioning to hospice care.
[2023-03-15 12:13] LABS: Glucose Point of Care 134 mg/dl (65-105)
[2023-03-15 14:30] VITALS: BP 114/76; PULSE 102; RESP 18; TEMP 36.9; O2SAT 98
--- NOTE | 2023-03-15 15:06 | PM.IMPN ---
Progress Note: A&P Assessment and Plan (1) Adult failure to thrive: Code(s): R62.7 - Adult failure to thrive Status: Acute Assessment and Plan: Patient has lost over 100 lb in under a year with progressive metabolic encephalopathy. Family has transition patient to DNR. Care coordination consultative id for hospice. Comfort measures initiated per family request. (2) Acute UTI: Code(s): N39.0 - Urinary tract infection, site not specified Status: Ruled-out Assessment and Plan: Patient has a history of multiple UTI infections. During his last visit his urine culture came back normal and antibiotics were discontinued. He is on chronic antibiotic therapy cefdinir 300 mg twice daily for UTI prevention. Presented back to the ED due to progressive weakness. Urine appears infected. Has history of urostomy due to bladder cancer. Urine culture negative for acute infection. Rocephin discontinued. Blood culture no growth to date (3) Transaminitis: Code(s): R74.01 - Elevation of levels of liver transaminase levels Status: Acute Assessment and Plan: Gallbladder sludge. 2. 4 mm stone in the right renal pelvis with mild right hydronephrosis. Hepatitis panel negative Hold Statin (4) Type 2 diabetes mellitus without complication, without long-term current use of insulin: Code(s): E11.9 - Type 2 diabetes mellitus without complications Status: Chronic Assessment and Plan: Diabetic medications discontinued due to comfort measures. (5) Other and unspecified hyperlipidemia: Code(s): E78.5 - Hyperlipidemia, unspecified Status: Acute Assessment and Plan: Statin discontinued due to comfort measures. (6) Essential (primary) hypertension: Onset Date: 04/04/18 Code(s): I10 - Essential (primary) hypertension Status: Chronic Assessment and Plan: Medications discontinued due to comfort measures. (7) Chronic HFrEF (heart failure with reduced ejection fraction): Code(s): I50.22 - Chronic systolic (congestive) heart failure Status: Acute Assessment and Plan: Continue with metoprolol echo from 11/30/2022 1. Left ventricular dilation with severe global systolic hypokinesis/low ejection fraction. ? 2. Left atrial enlargement. ? 3. Very small amount of mitral valve regurgitation due to annular enlargement. ? 4. Presence of pacemaker/ICD lead noted. Plan Patient does have a thyroid nodule and has received ultrasound at [facility]. He has not undergone thyroid biopsy. Patient's daughter has records of this and it was put with patient's paper chart. Subjective Date/time seen: 03/15/23 15:06 Interval history: Patient resting comfortably in bed. He has been transferred to comfort measures only. He is currently awaiting placement into nursing facility under hospice care. Once he has a bed at a facility he will be able to discharge peer Review of Systems Review of Systems: All systems reviewed & are unremarkable except as noted in HPI and below Exam Narrative: GENERAL: comfortable, no acute distress, cachectic NECK: no lymphadenopathy RESPIRATORY: clear to auscultation CARDIO: RRR GI: soft, nontender, bowel sounds present, urostomy in place SKIN: no rashes EXTREMITIES: no edema, redness or tenderness Objective Data Vital Signs Vital Signs: Vital Signs - 24 hr 03/14/23 16:00 03/14/23 19:37 03/14/23 20:00 Temperature 98.2 F Pulse Rate 86 88 89 Respiratory Rate 14 Blood Pressure 118/55 L Pulse Oximetry 95 03/15/23 00:00 03/15/23 04:24 03/15/23 04:00 Temperature 98.4 F Pulse Rate 90 88 87 Respiratory Rate 16 Blood Pressure 116/58 L Pulse Oximetry 92 Intake/Output Intake/Output: Intake & Output 03/12/23 03/13/23 03/14/23 03/15/23 23:59 23:59 23:59 23:59 Intake Total 1050 1820 1300 41
[2023-03-15 17:00] LABS: Glucose Point of Care 122 mg/dl (65-105)
--- NOTE | 2023-03-15 19:11 | PDONCCN ---
HPI - Date of Consult Date/Time: 03/15/23 19:11 Requesting Physician: Marques Mak MD Primary Care Provider: Santosh Davila MD - Consult Narrative Reason for consult: Pancytopenia Narrative: Casey Orellana is a 78 year old male with recent admission to the hospital with UTI and mental status changes discharged on March 12 came back into the hospital with complain of tiredness weakness and frequent fall. Patient has a history of liver cirrhosis and type 2 diabetes along with prostate cancer. Labs on this admission showed hemoglobin of 10.9, WBC 3.1 and platelet count of 162407. Liver enzymes were elevated with AST of 119 and ALT of 88. Creatinine was normal at 1.1. Abdominal ultrasound showed gallbladder sludge with 4 mm right renal pelvis stone with mild hydronephrosis. CT scan done on March 09 showed normal spleen and liver. Thyroid ultrasound showed right thyroid 2.9 cm nodule. Skeletal survey previously showed no lytic or blastic lesions. Patient is only partially responsive and not able to provide any history. Review of Systems - Review of Systems All systems reviewed & are unremarkable except as noted in HPI and bel - Neurologic Reports system reviewed and no additional complaints, except as documented, Reports hearing normal [facility] Medical History: Medical History (Last Reviewed 03/13/23 @ 01:06 by Courtney Franklin NP) Altered taste Benign essential hypertension Cardiomyopathy Echocardiogram 10/2020: EF 37-42%, biatrial and biventricular enlargement, mild pulmonary hypertension with RVSP of 37, left ventricular hypertrophy, moderate mitral valve regurgitation, trace aortic and tricuspid regurgitation Chronic HFrEF (heart failure with reduced ejection fraction) COVID-19 Onset Date: 05/2022 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 History of aortic aneurysm Liver cirrhosis Malignant neoplasm of urinary bladder Type 2 diabetes mellitus without complication, without long-term current use of insulin Weight loss Surgical History: Surgical History (Last Updated 03/12/23 @ 19:32 by Courtney Franklin NP) H/O total cystectomy History of implantable cardioverter-defibrillator (ICD) insertion History of percutaneous coronary intervention Family History: Family History (Last Reviewed 03/13/23 @ 01:08 by Courtney Franklin NP) Mother Family history of type 2 diabetes mellitus - Social History Social History: Social History (Last Reviewed 08/05/23 @ 01:08 by Courtney Franklin NP) Alcohol Use: Alcohol intake: never Alcohol use details: Substance Use: Substance use: never Substance use type: does not use Others: Spiritual care concerns: No Smoking Status: Smoking status: Never smoker Second hand tobacco smoke exposure: Yes Social Determinants of Health: Has the Lack of Transportation Kept You From Medical Appointments or From Getting Medications?: No Within the Past 12 Months, Were You Worried Whether Your Food Would Run Out Before You Got Money to Buy More?: Never True What is Your Housing Situation Today?: I Have Housing Are You Worried That in the Next 2 Months, You May Not Have Your Own Housing to Live In?: No Do You Have Trouble Paying Your Heating Or Electricity Bill?: No Do You Have Trouble Paying For Medicines?: No Are You Currently Unemployed and Looking for Work?: No Highest Level of Education Completed: High School Diploma/GED Do You Have Trouble With Childcare or the Care of a Family Member?: No Exam - Vital Signs Vital Signs - 24 hr 03/14/23 19:37 03/14/23 20:00 03/15/23 00:00 Temperature 36.8 C Pulse Rate 88 89 90 Respiratory Rate 14 Blood Pressure 118/55 L Pulse Oximetry 95 03/15/23 04:24 03/15/23 04:00 03/15/23 14:30 Temperature 36.9 C 36.9 C Pulse Rate 88 87 102 H Respiratory Rate 16 18 Blood Pressure 116/58 L 114/76 Pulse Oximetry 92 98 - Exam Christian
--- NOTE | 2023-03-15 19:44 | PC.NURSE ---
On 03/15/23, the graduate nurse, Inna Gonzalez, provided care and completed [facility] documentation on this patient. I have reviewed the student's documentation and agree with the findings.
[2023-03-15 19:58] VITALS: BP 101/58; PULSE 96; RESP 18; TEMP 36.4; O2SAT 98
[2023-03-16 03:27] VITALS: BP 92/56; PULSE 94; RESP 18; TEMP 36.4; O2SAT 95
[2023-03-16 05:38] LABS: Iron 21 ug/dL (49-181)
[2023-03-16 05:47] LABS: Percent Iron Saturation 9 % (20-50)
[2023-03-16 06:31] LABS: Folic Acid 19.7 ng/mL (2.76->20)
[2023-03-16] MEDS: MORPHINE SULFATE (*CRX) 15 MG TABCR PO (10:11)
--- NOTE | 2023-03-16 11:42 | PM.DS ---
DS: Admitting Diagnosis Discharge Date 03/16/23 Admitting Diagnosis Fall, progressive weakness DS: Discharge Diagnosis Discharge Diagnosis (1) Adult failure to thrive: Code(s): R62.7 - Adult failure to thrive Status: Acute Assessment and Plan: Patient has lost over 100 lb in under a year with progressive metabolic encephalopathy. Family has transition patient to DNR. Care coordination consultative id for hospice. Comfort measures initiated per family request. (2) Acute UTI: Code(s): N39.0 - Urinary tract infection, site not specified Status: Ruled-out Assessment and Plan: Patient has a history of multiple UTI infections. During his last visit his urine culture came back normal and antibiotics were discontinued. He is on chronic antibiotic therapy cefdinir 300 mg twice daily for UTI prevention. Presented back to the ED due to progressive weakness. Urine appears infected. Has history of urostomy due to bladder cancer. Urine culture negative for acute infection. Rocephin discontinued. Blood culture no growth to date (3) Transaminitis: Code(s): R74.01 - Elevation of levels of liver transaminase levels Status: Acute Assessment and Plan: Gallbladder sludge. 2. 4 mm stone in the right renal pelvis with mild right hydronephrosis. Hepatitis panel negative Hold Statin (4) Type 2 diabetes mellitus without complication, without long-term current use of insulin: Code(s): E11.9 - Type 2 diabetes mellitus without complications Status: Chronic Assessment and Plan: Diabetic medications discontinued due to comfort measures. (5) Other and unspecified hyperlipidemia: Code(s): E78.5 - Hyperlipidemia, unspecified Status: Acute Assessment and Plan: Statin discontinued due to comfort measures. (6) Essential (primary) hypertension: Onset Date: 04/04/18 Code(s): I10 - Essential (primary) hypertension Status: Chronic Assessment and Plan: Medications discontinued due to comfort measures. (7) Chronic HFrEF (heart failure with reduced ejection fraction): Code(s): I50.22 - Chronic systolic (congestive) heart failure Status: Acute Assessment and Plan: Continue with metoprolol echo from 11/30/2022 1. Left ventricular dilation with severe global systolic hypokinesis/low ejection fraction. ? 2. Left atrial enlargement. ? 3. Very small amount of mitral valve regurgitation due to annular enlargement. ? 4. Presence of pacemaker/ICD lead noted. Plan Patient does have a thyroid nodule and has received ultrasound at [facility]. He has not undergone thyroid biopsy. Patient's daughter has records of this and it was put with patient's paper chart. DS: Summary Hospital Course Hospital Course: This is a 78-year-old male that was recently discharged from the hospital due to progressive weakness and falls. He was recently treated for UTI but urine came back normal. He has been progressively weak.? When I discussed this with patient's daughter during last visit I advised in follow-up with lytic lesions on L5 and possible workup for multiple myeloma. ? He also has a history of a thyroid nodule that has not been biopsied yet either. Patient was returned to the hospital on 03/12/2023 again due to weakness, not eating and confusion. Patient's urine appeared to be infected although culture came back clear once again and antibiotics were discontinued. Patient is declining and failure to thrive was discussed with family.? Patient did verbalize that he was not interested in any cancer treatment.? Discussed with the daughter that if they are not looking to pursue treatment of anything then investigating further may not be necessary.? Patient experiencing malnutrition and failure to thrive symptoms.? Patient states that he is weak all over. He also has chronic
[2023-03-16 13:41] LABS: SARS-CoV-2 RNA PCR Negative (Negative)
[2023-03-16 14:14] VITALS: BP 105/58; PULSE 98; RESP 16; TEMP 36.6; O2SAT 96
[2023-03-19 06:50] LABS: Methylmalonic Acid 193 nmol/L (87-318)
== END 2023-03-16 15:50 | disposition hospice, inpatient (51) | DRG 640 ==
LOC: ANHED 17:22 → ANH3MEDSUR 18:17 → ANH2MED 19:13
PROVIDERS: Emergency Medicine; Internal Medicine Hematology & Oncology; Nurse Practitioner; Admitting Provider Internal Medicine; Emergency Provider Student in an Organized Health Care Education/Training Program; PCP Family Medicine; Visit Provider Internal Medicine Critical Care Medicine
DX: R62.7 Adult failure to thrive (principal); G93.41 Metabolic encephalopathy; N13.2 Hydronephrosis with renal and ureteral calculous obstruction; I50.22 Chronic systolic (congestive) heart failure; R64 Cachexia; I42.9 Cardiomyopathy, unspecified; D61.818 Other pancytopenia; E46 Unspecified protein-calorie malnutrition; Z20.822 Contact with and (suspected) exposure to COVID-19; Z66 Do not resuscitate; E11.9 Type 2 diabetes mellitus without complications; E78.5 Hyperlipidemia, unspecified; I11.0 Hypertensive heart disease with heart failure; E04.1 Nontoxic single thyroid nodule; K74.60 Unspecified cirrhosis of liver; R29.6 Repeated falls; Z87.440 Personal history of urinary (tract) infections; Z85.51 Personal history of malignant neoplasm of bladder; Z68.22 Body mass index [BMI] 22.0-22.9, adult; Z79.82 Long term (current) use of aspirin; Z86.16 Personal history of COVID-19; Z86.73 Personal history of transient ischemic attack (TIA), and cerebral infarction without residual deficits; Z95.810 Presence of automatic (implantable) cardiac defibrillator
CPT/HCPCS: 36415; 70450; 71046; 71275; 72125; 74177; 76705; 80048; 80053; 80074; 81001; 82607; 82728; 82746; 82948; 83540; 83550; 83605; 83690; 83735; 83921; 84443; 84484; 85025; 85610; 85730; 86140; 87040; 87086; 87088; 87635; 93005; 96361; 96365; 96376; 97161; 97165; 99285; A9270; G0378; J0696; J1170; J2270; J7030; Q9967